=== PATIENT | male | born 1945 | race Caucasian/White ===

== ENCOUNTER → 2017-07-21 09:55 | Outpatient (CLI) | payer MEDICARE ==
[2016-10-18 23:08] VITALS: BMI 24.2
[~2017-07-21 09:55] MED LIST: ACETAMINOPHEN325 MG PO; CLONAZEPAM0.25 MG/TA PO; COUMADIN3 MG PO; HYDROCODON-ACE1 EAC7 PO; LIPITOR20 MG PO; NORVASC5 MG PO; OMEPRAZOLE40 MG PO; OMNICEF300 MG PO; SENNA LAXATIVE8.6 MG PO; STERAPRED 5MG 125 MG PO; ZITHROMAX250 MG PO
== END | disposition home or self-care (01) ==
LOC: D.US 09:55
DX: N18.4 Chronic kidney disease, stage 4 (severe) (principal); R80.0 Isolated proteinuria; R09.89 Other specified symptoms and signs involving the circulatory and respiratory systems

== ENCOUNTER 2017-11-24 14:27 | Inpatient (IN) | payer MEDICARE ==
[~2017-11-24] VITALS: Ht 175.3 cm; Wt 68.5 kg
--- NOTE | ~2017-11-24 | EC ---
PATIENT:SAMANTHA SLOAN DATE OF SERVICE: 11/24/17 SEX: M MEDICAL RECORD: [id number] DATE OF : [birth year] LOCATION:[facility] AGE OF PATIENT: 72 ADMISSION DATE: 11/24/17 REFERRING PHYSICIAN: INTERPRETING PHYSICIAN: JULISA MCCLENDON MD ECHOCARDIOGRAM REPORT ECHO CHARGES 4 ECHO COMPLETE CLINICAL DIAGNOSIS: DYSPNEA ECHOCARDIOGRAPHIC MEASUREMENTS (adult normal given) AC root (d.<3.7cm) 3.1 cm LV Septum d (<1.2 cm> 1.4 cm Valve Excursion 2.2 cm LV Septum (systole) 1.7 cm Left Atria (s.<4.0cm> 3.7 cm LVPW d(<1.2cm) 1.1 cm RV (d.<2.3cm) 3.4 cm LVPW (sytole) 1.8 cm LV diastole(<5.6CM) 5.0 cm MV E-F(>70mm/sec) cm LV systole 3.6 cm LVOT Diameter 2.0 cm MV exc.(>10mm) cm Est.ejection fraction (50-75%) % Pericardial Effusion N DOPPLER: LVIT cm/sec A 73.0 cm/sec E 101 cm/sec LA cm/sec RVSP 31.0 mmHg LVOT 121 cm/sec AOP1/2T m/s Asc. Ao 146 cm/sec RVOT 70.0 cm/sec RA cm/sec PA 92.0 cm/sec AV Gradient Peak 8.5 mmHg AV Mean 4.1 mmHg AV Area 2.0 cm MV Gradient Peak 5.6 mmHg MV Mean 2.3 mmHg MV Area cm COMMENTS: Labor Arbitrator: Keshawn RUBIOE Nitrate Operator: Germán Mcclendon TAPE# PACS DATE OF SERVICE: 11/26/2017 PROCEDURE: Transthoracic echocardiogram. FINDINGS: 1. Left ventricle has evidence of moderate concentric left ventricular hypertrophy with inflow characteristics that are normal. No evidence of diastolic dysfunction. The patient's ejection fraction is mildly reduced at 45% with mild global hypokinesis. The inferior lateral wall was not well visualized. ECHOCARDIOGRAM REPORT [id number] SAMANTHA SLOAN 2. The right ventricle appears mildly dilated with normal function. 3. The left atrium is normal size, normal function. 4. Aortic valve is normal. 5. The mitral valve has trace mitral regurgitation. 6. The tricuspid valve has trace tricuspid regurgitation with normal pressures. 7. Right atrium is mildly dilated. 8. The pulmonic valve is grossly normal. CONCLUSIONS: The patient has mildly decreased LV systolic function; however, it should be noted that there were areas of endocardial surface that we could not well visualized on this study and it is possible that this is contributing to her estimation of left ventricular function. The patient does have evidence of mild hypertrophy of the left ventricle. TRANSINT:[id number] Voice Confirmation ID: [id number] DOCUMENT ID: [id number] JULISA MCCLENDON MD at 1353 CC: [id number] DICTATION DATE: 11/26/17 1015 SWEATBAND DRUMMER: 11/26/17 1124 ADM IN [place] [id number] [place] [address]
[2017-11-24 15:42] LABS: BASOPHILS 0.1 % (0-2); EOSINOPHILS 0.1 % (0-7); HEMATOCRIT 24.4 % (42.0-54.0); HEMOGLOBIN 8.1 g/dL (13.5-17.5); IMMATURE GRANULOCYTES 0.3 % (0-5); LYMPHOCYTES 7.2 % (15-50); MCH 31.2 pg (26.0-34.0); MCHC 33.2 g/dL (31.0-37.0); MCV 93.8 fL (80.0-100.0); MEAN PLATELET VOLUME 9.3 fL (7.4-10.4); MONOCYTES 6.4 % (2-11); NEUTROPHILS 85.9 % (40-80); PLATELET COUNT 604 10x3/uL (130-400); RDW 14.6 % (11.5-14.5)
[2017-11-24 16:23] LABS: ALBUMIN 2.5 g/dL (3.4-5.0); ANION GAP 17.9 mmol/L (8-16); BILIRUBIN - TOTAL 0.59 mg/dL (0.2-1.3); CALCIUM 9.2 mg/dL (8.5-10.1); CARBON DIOXIDE 23.4 mmol/L (21.0-32.0); CREATININE - SERUM 4.3 mg/dL (0.6-1.3); POTASSIUM - SERUM 5.3 mmol/L (3.5-5.1); PROTEIN - SERUM 7.1 g/dL (6.4-8.2)
[2017-11-24 16:27] LABS: APPEARANCE CLEAR (CLEAR); BILIRUBIN NEGATIVE (NEGATIVE); COLOR YELLOW (YELLOW); GLUCOSE NEGATIVE (NEGATIVE); KETONE NEGATIVE (NEGATIVE); NITRITE NEGATIVE (NEGATIVE); PROTEIN 1+ mg/dL (NEGATIVE); SPECIFIC GRAVITY 1.015 (1.005-1.020); UROBILINOGEN NORMAL (NORMAL)
[2017-11-24 17:17] LABS: MAGNESIUM - SERUM 2.3 mg/dL (1.8-2.4)
[2017-11-25] VITALS (21 sets, daily range): BP systolic 105–129; BP diastolic 51–70; BMI 22.3
[2017-11-25] MEDS ORDERED: OXYCODONE HCL5 MG PO (00:12)
[2017-11-25] MEDS ORDERED: GABAPENTIN100 MG PO (00:13)
[2017-11-25] MEDS ORDERED: NORVASC10 MG PO (00:13)
[2017-11-25] MEDS ORDERED: PLAVIX75 MG PO (00:14)
[2017-11-25] MEDS ORDERED: PRINIVIL20 MG PO (00:14)
[2017-11-25] MEDS ORDERED: BAYER CHEWABLE81 MG PO (00:15)
[2017-11-25] MEDS ORDERED: FUROSEMIDE20 MG PO (00:15)
[2017-11-25 12:50] LABS: BASOPHILS 0.1 % (0-2); EOSINOPHILS 0.1 % (0-7); IMMATURE GRANULOCYTES 0.3 % (0-5); LYMPHOCYTES 9.4 % (15-50); MCHC 31.8 g/dL (31.0-37.0); MCV 94.2 fL (80.0-100.0); MEAN PLATELET VOLUME 9.1 fL (7.4-10.4); MONOCYTES 7.9 % (2-11); NEUTROPHILS 82.2 % (40-80); RBC 2.07 10x6/uL (4.20-6.10); RDW 14.8 % (11.5-14.5)
[2017-11-25 12:58] LABS: WBC 10.7 10x3/uL (4.8-10.8)
[2017-11-25 13:00] LABS: HEMATOCRIT 19.5 % (42.0-54.0); HEMOGLOBIN 6.2 g/dL (13.5-17.5); PLATELET COUNT 426 10x3/uL (130-400)
[2017-11-25 13:18] LABS: % SATURATION 5 % (15-55); IRON 9 ug/dl (35-150); TOTAL IRON BIND CAPACITY 175 ug/dl (260-445); UNSAT IRON BIND CAPACITY 166 ug/dl (150-375)
[2017-11-25 13:28] LABS: ANION GAP 15.6 mmol/L (8-16); CALCIUM 8.1 mg/dL (8.5-10.1); CARBON DIOXIDE 25.6 mmol/L (21.0-32.0); CREATININE - SERUM 4.8 mg/dL (0.6-1.3); POTASSIUM - SERUM 4.2 mmol/L (3.5-5.1)
[2017-11-26] VITALS (15 sets, daily range): BP systolic 113–180; BP diastolic 36–69
[2017-11-26 06:47] LABS: BASOPHILS 0.1 % (0-2); EOSINOPHILS 0.8 % (0-7); IMMATURE GRANULOCYTES 0.7 % (0-5); LYMPHOCYTES 11.6 % (15-50); MCH 31.3 pg (26.0-34.0); MCHC 34.6 g/dL (31.0-37.0); MEAN PLATELET VOLUME 9.9 fL (7.4-10.4); MONOCYTES 10.1 % (2-11); NEUTROPHILS 76.7 % (40-80); PLATELET COUNT 443 10x3/uL (130-400); RDW 15.3 % (11.5-14.5); WBC 10.3 10x3/uL (4.8-10.8)
[2017-11-26 06:55] LABS: HEMATOCRIT 28.6 % (42.0-54.0); HEMOGLOBIN 9.9 g/dL (13.5-17.5); MCV 90.5 fL (80.0-100.0); RBC 3.16 10x6/uL (4.20-6.10)
[2017-11-26 07:20] LABS: % SATURATION 48 % (15-55); IRON 96 ug/dl (35-150); TOTAL IRON BIND CAPACITY 200 ug/dl (260-445); UNSAT IRON BIND CAPACITY 104 ug/dl (150-375)
[2017-11-26 07:30] LABS: CALCIUM 8.5 mg/dL (8.5-10.1); CREATININE - SERUM 4.4 mg/dL (0.6-1.3)
[2017-11-27 00:59] LABS: HEMATOCRIT 30.9 % (42.0-54.0); HEMOGLOBIN 10.5 g/dL (13.5-17.5)
[2017-11-27 01:22] VITALS: BP 119/60
[2017-11-27 05:19] VITALS: BP 132/71
[2017-11-27 08:07] LABS: BASOPHILS 0.2 % (0-2); EOSINOPHILS 0.4 % (0-7); HEMATOCRIT 30.9 % (42.0-54.0); HEMOGLOBIN 10.5 g/dL (13.5-17.5); LYMPHOCYTES 7.6 % (15-50); MCV 91.2 fL (80.0-100.0); MEAN PLATELET VOLUME 9.6 fL (7.4-10.4); MONOCYTES 10.2 % (2-11); NEUTROPHILS 80.6 % (40-80); PLATELET COUNT 508 10x3/uL (130-400); RBC 3.39 10x6/uL (4.20-6.10); RDW 15.3 % (11.5-14.5); WBC 13.2 10x3/uL (4.8-10.8)
[2017-11-27 08:30] LABS: CALCIUM 8.3 mg/dL (8.5-10.1); CARBON DIOXIDE 25.2 mmol/L (21.0-32.0); CREATININE - SERUM 4.1 mg/dL (0.6-1.3); POTASSIUM - SERUM 5.2 mmol/L (3.5-5.1)
[2017-11-27 08:34] VITALS: BP 141/65
[2017-11-27 12:07] LABS: HEMATOCRIT 31.7 % (42.0-54.0); HEMOGLOBIN 10.7 g/dL (13.5-17.5)
[2017-11-27 12:33] VITALS: BP 107/60
[2017-11-27 16:51] VITALS: BP 114/60
[2017-11-27 19:21] LABS: HEMATOCRIT 31.5 % (42.0-54.0); HEMOGLOBIN 10.7 g/dL (13.5-17.5)
[2017-11-27 22:17] VITALS: BP 133/84
[2017-11-28 00:51] LABS: HEMATOCRIT 28.9 % (42.0-54.0); HEMOGLOBIN 9.8 g/dL (13.5-17.5)
[2017-11-28 02:28] VITALS: BP 134/68
[2017-11-28 04:41] VITALS: BP 128/66
[2017-11-28 06:13] LABS: BASOPHILS 0.2 % (0-2); EOSINOPHILS 0.7 % (0-7); HEMATOCRIT 29.7 % (42.0-54.0); HEMOGLOBIN 10.2 g/dL (13.5-17.5); IMMATURE GRANULOCYTES 0.8 % (0-5); LYMPHOCYTES 10.9 % (15-50); MCH 31.2 pg (26.0-34.0); MCHC 34.3 g/dL (31.0-37.0); MCV 90.8 fL (80.0-100.0); MEAN PLATELET VOLUME 9.3 fL (7.4-10.4); MONOCYTES 11.6 % (2-11); NEUTROPHILS 75.8 % (40-80); PLATELET COUNT 506 10x3/uL (130-400); RBC 3.27 10x6/uL (4.20-6.10); RDW 15.1 % (11.5-14.5); WBC 12.1 10x3/uL (4.8-10.8)
[2017-11-28 07:00] LABS: ALBUMIN 1.8 g/dL (3.4-5.0); CALCIUM 8.6 mg/dL (8.5-10.1); CARBON DIOXIDE 24.7 mmol/L (21.0-32.0); CREATININE - SERUM 3.9 mg/dL (0.6-1.3); PHOSPHOROUS 4.5 mg/dL (2.5-4.9); POTASSIUM - SERUM 4.7 mmol/L (3.5-5.1)
[2017-11-28 08:26] VITALS: BP 134/68
[2017-11-28 12:27] VITALS: BP 151/87
[2017-11-28 16:51] VITALS: BP 88/58
[2017-11-28 20:51] VITALS: BP 137/74
[2017-11-29 05:44] LABS: BASOPHILS 0.3 % (0-2); EOSINOPHILS 0.9 % (0-7); HEMATOCRIT 29.4 % (42.0-54.0); LYMPHOCYTES 11.7 % (15-50); MEAN PLATELET VOLUME 9.2 fL (7.4-10.4); MONOCYTES 11.3 % (2-11); NEUTROPHILS 74.8 % (40-80); PLATELET COUNT 476 10x3/uL (130-400); RBC 3.23 10x6/uL (4.20-6.10); RDW 15.1 % (11.5-14.5); WBC 11.6 10x3/uL (4.8-10.8)
[2017-11-29 05:53] VITALS: BP 133/69
[2017-11-29 05:56] LABS: ANION GAP 15.2 mmol/L (8-16); CALCIUM 8.4 mg/dL (8.5-10.1); CARBON DIOXIDE 22.3 mmol/L (21.0-32.0); CREATININE - SERUM 3.4 mg/dL (0.6-1.3)
[2017-11-29 06:21] LABS: POTASSIUM - SERUM 5.5 mmol/L (3.5-5.1)
[2017-11-29 07:21] LABS: IMMUNOGLOBULIN E 29 IU/mL (0-100)
[2017-11-29 07:21] LABS: FOLATE (FOLIC ACID) - SERUM 6.4 ng/mL (>3.0)
[2017-11-29 08:44] VITALS: BP 105/72
[2017-11-29 11:53] VITALS: BP 141/63
[2017-11-29 16:17] VITALS: BP 162/69
[2017-11-29 20:00] VITALS: BP 150/61
[2017-11-30] VITALS: BP 155/66
[2017-11-30 08:33] VITALS: BP 153/74
[2017-11-30 08:58] LABS: CALCIUM 8.7 mg/dL (8.5-10.1); CARBON DIOXIDE 23.4 mmol/L (21.0-32.0); CREATININE - SERUM 2.9 mg/dL (0.6-1.3); PHOSPHOROUS 3.2 mg/dL (2.5-4.9); POTASSIUM - SERUM 5.4 mmol/L (3.5-5.1)
[2017-11-30 09:45] LABS: BASOPHILS 0.3 % (0-2); EOSINOPHILS 1.4 % (0-7); HEMATOCRIT 30.2 % (42.0-54.0); HEMOGLOBIN 10.1 g/dL (13.5-17.5); IMMATURE GRANULOCYTES 1.2 % (0-5); LYMPHOCYTES 9.5 % (15-50); MCH 30.8 pg (26.0-34.0); MCHC 33.4 g/dL (31.0-37.0); MCV 92.1 fL (80.0-100.0); MEAN PLATELET VOLUME 9.5 fL (7.4-10.4); MONOCYTES 11.3 % (2-11); NEUTROPHILS 76.3 % (40-80); PLATELET COUNT 466 10x3/uL (130-400); RBC 3.28 10x6/uL (4.20-6.10); WBC 10.9 10x3/uL (4.8-10.8)
[2017-11-30 12:57] VITALS: BP 154/74
[2017-11-30 15:03] VITALS: Ht 175.3 cm; Wt 68.5 kg
[2017-11-30 17:04] VITALS: BP 161/71
[2017-11-30 20:00] VITALS: BP 156/39
[2017-12-01 04:00] VITALS: BP 151/44
[2017-12-01 04:14] LABS: BASOPHILS 0.2 % (0-2); EOSINOPHILS 1.8 % (0-7); LYMPHOCYTES 12.6 % (15-50); MCHC 33.3 g/dL (31.0-37.0); MCV 92.9 fL (80.0-100.0); MEAN PLATELET VOLUME 9.2 fL (7.4-10.4); MONOCYTES 10.6 % (2-11); NEUTROPHILS 73.8 % (40-80); PLATELET COUNT 442 10x3/uL (130-400); RBC 3.23 10x6/uL (4.20-6.10); RDW 15.2 % (11.5-14.5)
[2017-12-01 05:01] LABS: ANION GAP 13.3 mmol/L (8-16); CARBON DIOXIDE 25.3 mmol/L (21.0-32.0); CREATININE - SERUM 2.8 mg/dL (0.6-1.3); POTASSIUM - SERUM 5.6 mmol/L (3.5-5.1)
[2017-12-01 08:16] VITALS: BP 146/74
[2017-12-01 12:57] VITALS: BP 142/57
[2017-12-01 16:14] VITALS: BP 145/70
[2017-12-01 20:00] VITALS: BP 152/76
[2017-12-01] MEDS ORDERED: ADOXA100 MG PO (20:36)
[2017-12-01] MEDS ORDERED: OMNICEF300 MG PO (20:37)
[2017-12-02] VITALS: BP 157/84
== END 2017-12-02 01:00 | disposition home health service (06) | DRG 177 ==
LOC: D.ER 14:27 → D.MS 18:19
PROVIDERS: Emergency Medicine; Family Medicine; Internal Medicine Nephrology; Internal Medicine Pulmonary Disease; Physician Assistant Medical
DX: J15.6 Pneumonia due to other Gram-negative bacteria (principal); A41.9 Sepsis, unspecified organism; J96.01 Acute respiratory failure with hypoxia; J98.11 Atelectasis; J90 Pleural effusion, not elsewhere classified; I13.0 Hypertensive heart and chronic kidney disease with heart failure and stage 1 through stage 4 chronic kidney disease, or unspecified chronic kidney disease; I50.30 Unspecified diastolic (congestive) heart failure; N17.9 Acute kidney failure, unspecified; J44.1 Chronic obstructive pulmonary disease with (acute) exacerbation; J44.0 Chronic obstructive pulmonary disease with (acute) lower respiratory infection; I69.354 Hemiplegia and hemiparesis following cerebral infarction affecting left non-dominant side; M35.1 Other overlap syndromes; E22.2 Syndrome of inappropriate secretion of antidiuretic hormone; N18.3 Chronic kidney disease, stage 3 (moderate); R39.11 Hesitancy of micturition; I73.9 Peripheral vascular disease, unspecified; I48.91 Unspecified atrial fibrillation; D64.9 Anemia, unspecified; I69.311 Memory deficit following cerebral infarction; R33.9 Retention of urine, unspecified; N40.0 Benign prostatic hyperplasia without lower urinary tract symptoms; J15.212 Pneumonia due to Methicillin resistant Staphylococcus aureus; R63.1 Polydipsia

== ENCOUNTER 2019-12-06 15:56 | Inpatient (IN) | payer MEDICARE ==
[~2019-12-06] VITALS: Ht 175.3 cm; Wt 75.6 kg
--- NOTE | ~2019-12-06 | CN ---
PATIENT NAME:SAMANTHA PENA MEDICAL RECORD: [id number] : 47 LOCATION:[facility].2314 ADMIT DATE: 12/06/19 ACCOUNT: [id number] CONSULTING PHYSICIAN: LAYLA STAFFORD MD REFERRING PHYSICIAN: STAN MARTINI MD DATE OF CONSULTATION: 12/07/2019 CONSULT REQUESTING PHYSICIAN: Stan Martini MD REASON FOR CONSULTATION: Bilateral pleural effusion, questionable pneumonia. HISTORY OF PRESENT ILLNESS: Mr. Pena is a 74-year-old gentleman who has more than 28-kvmd-fzob history of smoking, quit in 2010. He was admitted with some fever and worsening shortness of breath and chest x-ray showed bilateral lower lobe infiltrates and the patient was admitted to the hospital. The repeat chest radiograph yesterday showed bilateral pleural effusion. He is complaining of shortness of breath. He has cough with pale yellow color sputum production. There is no fever and chill now. There is no chest pain. He is also having orthopnea and PND. REVIEW OF SYSTEMS: As in history of present illness. PAST MEDICAL HISTORY: 1. He has a history of cerebrovascular accident. 2. History of aneurysm. 3. Hypertension. 4. Peripheral vascular disease. 5. Chronic backache. 6. Arthritis. PAST SURGICAL HISTORY: 1. Forearm extremity. 2. He has amputation in 2007. ALLERGIES: HE IS ALLERGIC TO MELOXICAM. MEDICATIONS: [employer] is reviewed. PERSONAL AND SOCIAL HISTORY: The patient has more than 44-gizj-cwxz history of smoking. He quitted 2010. He is a nondrinker. FAMILY HISTORY: Noncontributory. PHYSICAL EXAMINATION: GENERAL: Now, the patient is lying comfortably. He is not in acute distress. VITAL SIGNS: The blood pressure is 138/64, pulse is 84, respiration is 20, temperature 98.8, and SPO2 is 90% on 2 liters nasal cannula. HEENT: Conjunctivae are pink. Sclerae are not icteric. NECK: Supple, no JVD. CHEST: There is prolonged expiratory wheezing. There are bibasilar crackles with dullness on percussion. HEART: Rate and rhythm regular, normal sound, no murmur. ABDOMEN: Soft, bowel sounds present. No hepatosplenomegaly. RECTAL: Deferred. EXTREMITIES: No cyanosis, no clubbing, no pedal edema. CONSULT REPORT [id number] SAMANTHA PENA CENTRAL NERVOUS SYSTEM: The patient is awake and alert. There is no obvious cranial nerve abnormality. The gait was not tested. EXTREMITIES: There is 2+ pedal edema. LABORATORY DATA: ABG: The pH is 7.34, pCO2 was 46.7, the pO2 is 59, bicarbonate 25.6. Chemistry: Sodium is 136, potassium 4.2, BUN is 42, creatinine 4.9. CBC: WBC is 4, hemoglobin is 9, hematocrit is 28.6, and platelet count 157. The proBNP is 23,892. CHEST RADIOGRAPH: There is bilateral moderate-sized pleural effusion and underlying atelectasis, possible infiltrate. IMPRESSION: 1. Acute hypoxic respiratory failure. 2. Bilateral pleural effusion, most likely secondary to congestive heart failure, rule out parapneumonic pleural effusion. 3. Pneumonia, bilateral, possible community-acquired pneumonia. 4. Congestive heart failure, possible chronic systolic dysfunction with a proBNP 22,000. 5. Acute renal failure with acute kidney injury. 6. Ex-smoker. 7. Acute exacerbation of chronic obstructive pulmonary disease. RECOMMENDATION: 1. Continue Lasix. 2. Hep-Lock IV. 3. Supplemental oxygen. 4. Brovana, budesonide nebulizer. 5. Albuterol/ipratropium nebulizer. 6. Check the decubitus chest film. 7. Follow up on the cardiac echo. If there is a significant layering of pleural effusion, we will proceed with thoracentesis. Dr. Martini thank you for involving me in the care of Mr. Pena. TRANSINT:[id number] Voice Confirmation ID: [id number] DOCUMENT ID: [id number] LAYLA STAFFORD MD CC: [id number] DICTATION DATE: 12/07/19 142 HYDROGRAPHER: 12/07/[address] [facility] [address] [place] [address]
[~2019-12-06 15:56] MED LIST changes: +ADOXA100 MG PO; +BAYER CHEWABLE81 MG PO; +FUROSEMIDE20 MG PO; +GABAPENTIN100 MG PO; +NORVASC10 MG PO; +OXYCODONE HCL5 MG PO; +PLAVIX75 MG PO; +PRINIVIL20 MG PO
[2019-12-06 16:21] LABS: BASOPHILS 0.7 % (0-2); EOSINOPHILS 5.3 % (0-7); HEMATOCRIT 31.6 % (42.0-54.0); IMMATURE GRANULOCYTES 0.2 % (0-5); LYMPHOCYTES 22.9 % (15-50); MCH 30.1 pg (26.0-34.0); MCHC 31.6 g/dL (31.0-37.0); MCV 95.2 fL (80.0-100.0); MONOCYTES 10.3 % (2-11); NEUTROPHILS 60.6 % (40-80); RBC 3.32 10x6/uL (4.20-6.10); RDW 14.6 % (11.5-14.5); WBC 4.4 10x3/uL (4.8-10.8)
[2019-12-06 16:25] LABS: PLATELET COUNT 158 10x3/uL (130-400)
[2019-12-06 16:31] LABS: INR 0.95 (0.85-1.17); PROTIME 12.6 SECONDS (11.6-15.0)
[2019-12-06 16:32] LABS: CALC OSMOLALITY 285 mosm/kg (275-300); CALCIUM 8.2 mg/dL (8.5-10.1); CARBON DIOXIDE 28.1 mmol/L (21.0-32.0); CHLORIDE - SERUM 101 mmol/L (98-107); GLUCOSE 107 mg/dL (74-106); POTASSIUM - SERUM 4.3 mmol/L (3.5-5.1); SODIUM 138 mmol/L (136-145); UREA NITROGEN 41 mg/dL (7-18); eGFR NON AFRICAN AMERICAN 12 mL/min (90-120)
[2019-12-06 16:50] LABS: ALBUMIN 3.3 g/dL (3.4-5.0); ALKALINE PHOSPHATASE 76 U/L (46-116); ALT (SGPT) 17 U/L (10-68); BILIRUBIN - TOTAL 0.65 mg/dL (0.2-1.3); CREATINE KINASE 192 UL (21-232); PRO BNP 23892 pg/mL (0-125); PROTEIN - SERUM 6.4 g/dL (6.4-8.2); TROPONIN-I < 0.017 ng/mL (0.000-0.060)
[2019-12-06 17:25] LABS: APPEARANCE CLEAR (CLEAR); BILIRUBIN NEGATIVE (NEGATIVE); COLOR YELLOW (YELLOW); GLUCOSE NEGATIVE (NEGATIVE); KETONE NEGATIVE (NEGATIVE); NITRITE NEGATIVE (NEGATIVE); PROTEIN 1+ mg/dL (NEGATIVE); SPECIFIC GRAVITY 1.015 (1.005-1.020); UROBILINOGEN NORMAL (NORMAL)
[2019-12-06 18:28] VITALS: BP 132/61
[2019-12-06 18:40] LABS: % SATURATION 9 % (15-55); IRON 32 ug/dl (35-150); TOTAL IRON BIND CAPACITY 326 ug/dl (260-445); UNSAT IRON BIND CAPACITY 294 ug/dl (150-375)
[2019-12-06 19:08] LABS: MAGNESIUM - SERUM 2.3 mg/dL (1.8-2.4)
[2019-12-06] MEDS ORDERED: CARDURA4 MG PO (19:49)
[2019-12-06] MEDS ORDERED: HYDROCODON-ACE1 EA10 PO (19:50)
[2019-12-06 22:13] VITALS: BP 127/60; BMI 19.2
--- NOTE | 2019-12-06 23:22 | NUR ---
INITIAL ROUNDS COMPLETED AT 1909 HRS. PT DENIED ANY DISCOMFORT. IV TO LAC WITH ZITHROMAX INFUSING. O2 4LNC. AT BEDSIDE. HOME MEDS COMPLETED BY 2029 HRS. Александр BUCHANAN APN NOTIFIED OF PT'S ADMISSION AND HOME MED LIST COMPLETED. ADMISSION ASSESSMENT AND HISTORY COMPLETED BY 2229 HRS. VSS. O2 4LNC. O2 SAT 90%. TELEMETRY UNAVAILABLE AT THIS TIME. IV TO LAC WITH LR AT 75CC/HR. IV PATENT. OLD L AKA NOTED. LUNGS DIMINISHED IN BASES BILAT. ABD SOFT WTIH ACTIVE BS NOTED. ALERT AND ORIENTED TO PERSON, PLACE AND TIME. PT CURRENTLY WATCHING TV. SR UP X2, CALL LIGHT WITHIN REACH REACH AND AT BEDSIDE.
[2019-12-06 23:26] LABS: CKMB 3.5 U/L (0.0-3.6); CREATINE KINASE 180 UL (21-232)
[2019-12-06 23:27] LABS: TROPONIN-I 0.017 ng/mL (0.000-0.060)
[2019-12-07] VITALS: BP 125/74
--- NOTE | 2019-12-07 02:31 | NUR ---
TELE PLACED. SR PER CM HR 74. PT RESTING WITH EYES CLOSED. RESP EVEN AND REGULAR. SR UP X2, CALL LIGHT WITHIN REACH AND SPOUSE AT BEDSIDE.
[2019-12-07 04:00] VITALS: BP 145/63
--- NOTE | 2019-12-07 05:49 | NUR ---
VSS THROUGHOUT NIGHT. SR PER CM. PT DENIED ANY DISCOMFORT. NEEDS MET;WILL CONTINUE TO MONITOR.
[2019-12-07 06:02] LABS: BASOPHILS 0.5 % (0-2); EOSINOPHILS 3.7 % (0-7); HEMATOCRIT 28.6 % (42.0-54.0); IMMATURE GRANULOCYTES 0.2 % (0-5); MCHC 31.5 g/dL (31.0-37.0); MCV 95.3 fL (80.0-100.0); MEAN PLATELET VOLUME 11.5 fL (7.4-10.4); MONOCYTES 7.2 % (2-11); NEUTROPHILS 64.4 % (40-80); PLATELET COUNT 157 10x3/uL (130-400); RDW 14.7 % (11.5-14.5)
[2019-12-07 06:12] LABS: ALBUMIN 2.9 g/dL (3.4-5.0); BILIRUBIN - TOTAL 0.55 mg/dL (0.2-1.3); CALCIUM 7.9 mg/dL (8.5-10.1); CARBON DIOXIDE 25.2 mmol/L (21.0-32.0); CREATININE - SERUM 4.9 mg/dL (0.6-1.3); POTASSIUM - SERUM 4.2 mmol/L (3.5-5.1)
--- NOTE | 2019-12-07 07:00 | NUR ---
RECEIVED REPORT. ASSUMED CARE OF PATIENT. CALL LIGHT WITHIN REACH. RESTING WITH EYES CLOSED. RESP EVEN AND UNLABORED. PATIETN AT BEDSIDE WITH EYES CLOSED. NO DISTRESS.
[2019-12-07 10:12] VITALS: BP 138/64
[2019-12-07 12:00] VITALS: BP 140/61
--- NOTE | 2019-12-07 12:27 | NUR ---
IV FLUIDS REDUCED TO KVO AT THIS TIME.
--- NOTE | 2019-12-07 14:18 | NUR ---
PER , IV FLUIDS OFF AND IV IS SALINE LOCKED AT THIS TIME.
[2019-12-07 16:44] LABS: CREATININE - URINE 87.7 mg/dL (30-125); PRO/CRE RATIO URINE 1.5 mg/g; PROTEIN - URINE 134.3 mg/dL (0.0-11.9)
[2019-12-07 20:00] VITALS: BP 128/61
--- NOTE | 2019-12-07 20:08 | NUR ---
INITIAL ORUNDS COMPLETED AT 1915 HRS. NO DISTRESS NOTED. ASSESSMENT COMPLETED AT 1950 HRS. SR PER CM HR 86. O2 4LNC. AUDIBLE EXP WHEEZES NOTED TO UPPER LOBES, DIMINISHED IN LOWER LOBES. ABD SOFT WTIH ACTIVE BS NOTED. SHAMIKA SIMPSON. SR UP X2, CALL LIGHT WITHIN REACH.
--- NOTE | 2019-12-07 21:34 | NUR ---
HUMIDIFER PLACED ON O2. PM MEDS GIVEN. HIBICLENS BATH DONE. PT TOLERATED ACTIVITY WELL. SR UP X2, CALL LIGHT WITHIN REACH.
--- NOTE | 2019-12-07 22:53 | NUR ---
ASSISTED PT TO BSC. VOIDED 200CC OF YELLOW URINE AND HAD A MODERTE BM. PT BACK TO BED PER SELF. PT VERY SOB WITH EXERTION. AUDIBLE WHEEZES NOTED. O2 SAT 83% ON 6LNC. PT PLACED IN HIGH FOWLERS AND ENCOURAGED TO TAKE SLOW DEEP BREATHS IN THROUGH HIS NOSE AND OUT THROUGH HIS MOUTH. O2 SAT TO 90% AFTER APPROX 5 MINUTES AND NO AUDIBLE WHEEZING. OTHER VSS. SR UP X2, CALL LIGHT WITHIN REACH.
[2019-12-08] VITALS (11 sets, daily range): BP systolic 108–165; BP diastolic 49–76
--- NOTE | 2019-12-08 00:46 | NUR ---
PT RESTING WITH EYES CLOSED. RESP EVEN AND REGULAR. SR UPX2, CALL LIGHT WITHIN REACH AND HOB UP 45 DEGREES.
--- NOTE | 2019-12-08 03:24 | NUR ---
ASSISTED PT TO BSC. PT SOB WITH ACTIVITY.
--- NOTE | 2019-12-08 03:55 | NUR ---
O2 SAT 65% ON 6L NC AFTER PT PUT SELF BACK IN BED. PT PLACED IN HIGH FOWLERS AND ENCOURGED TO TAKE SLOW DEEP BREATHS. UP TO 90% AFTER 10 MINUTES. RT CALLED FOR PRN RT TX AND FOR ?HIGH FLOW CANNULA. FAN PLACED IN ROOM PER PT REQUEST.
[2019-12-08 05:45] LABS: BASOPHILS 0.2 % (0-2); EOSINOPHILS 2.1 % (0-7); HEMATOCRIT 28.7 % (42.0-54.0); HEMOGLOBIN 8.9 g/dL (13.5-17.5); IMMATURE GRANULOCYTES 0.2 % (0-5); MCV 96.6 fL (80.0-100.0); MEAN PLATELET VOLUME 11.1 fL (7.4-10.4); MONOCYTES 10.3 % (2-11); NEUTROPHILS 73.2 % (40-80); PLATELET COUNT 138 10x3/uL (130-400); RBC 2.97 10x6/uL (4.20-6.10); RDW 14.7 % (11.5-14.5); WBC 4.3 10x3/uL (4.8-10.8)
--- NOTE | 2019-12-08 05:47 | NUR ---
PT STATES HE IS BREATHNG BETTER AT THIS TME. AUDIBLE EXP WHEEZES NOTED. O2 6L HF O2 WITH HUMIDIFIER. NEEDS MET; WILL CONTINUE TO MONITOR.
[2019-12-08 06:08] LABS: ANION GAP 11.7 mmol/L (8-16); CALCIUM 7.7 mg/dL (8.5-10.1); CARBON DIOXIDE 28.6 mmol/L (21.0-32.0); PHOSPHOROUS 5.4 mg/dL (2.5-4.9); POTASSIUM - SERUM 4.3 mmol/L (3.5-5.1)
--- NOTE | 2019-12-08 10:14 | NUR ---
ALERT AND ORIENTED.TELEMERTY SHOWS SR. SL TO LEFT AC. O2 AT 8 L/M HIGH FLOW. LUNGS WITH WHEEZES. LEFT AKA. LEFT HAND WITH PART OF HIS POINTER FINGER REMOVED. NO NEEDS VOICED. SR UP WITH CALL LIGHT IN REACH
[2019-12-08 17:06] LABS: ANION GAP 9.8 mmol/L (8-16); CALCIUM 7.6 mg/dL (8.5-10.1); CARBON DIOXIDE 28.3 mmol/L (21.0-32.0); CREATININE - SERUM 4.7 mg/dL (0.6-1.3); POTASSIUM - SERUM 4.1 mmol/L (3.5-5.1)
--- NOTE | 2019-12-08 17:30 | NUR ---
20 GAUGE IV PLACED TO LEFT UPPER ARM X 1 STICK. GOOD BLOOD RETURN, EASY FLUSH. TAPED, DATED, AND SECURED. PATIENT TOLERATED IV PLACEMENT WELL. PATIENT IN RAPID RESPONSE AT THIS TIME. DR. STAFFORD AT BEDSIDE. 60MG LASIX ADMINISTERED PER VERBAL INSTRUCTION OF . PATIENT TRANSFERRING TO ICU 1979.
--- NOTE | 2019-12-08 17:45 | NUR ---
RECEIVED PATIENT FROM [facility] 2 PER BED. PATIENT TRANSFERED SELF TO BED. SKIN WARM AND DRY. PATIENT AWAKE AND ALERT. ON HIGH GLOW OXYGEN AT 7 LITERS. PULSE OX 78%. RESP THERAPY HERE SETTING UP BIPAP. PATIENT PLACED ON BIPAP AT 50%. IV LEFT UPPER ARM SALINE LOCK.
--- NOTE | 2019-12-08 17:50 | NUR ---
IN ROOM, DISCUSS TRILYSIS CATHETER INSERTION WITH THEM. CONSENT SIGNED. QUESTIONS ANSWERED. PULSE OX IN 90'S. NO DISTRESS.
--- NOTE | 2019-12-08 17:59 | NUR ---
TRANSFERED TO ICU FOLLOWING RAPID RESPONCE. REPORT CALLED TO DENVER MARTÍNEZ.
[2019-12-08 18:26] LABS: CKMB 7.1 U/L (0.0-3.6); CREATINE KINASE 343 UL (21-232)
[2019-12-08 18:27] LABS: TROPONIN-I 0.057 ng/mL (0.000-0.060)
--- NOTE | 2019-12-08 20:19 | NUR ---
REPORT RECIEVED AND ROUNDING COMPLETE. DR. NGUYEN IN ROOM WITH PATIENT. PATIENT A&O X4. PATIENT STATES HE HAS NO NEES AT THIS TIME. CALL LIGHT WITHIN REACH AND BED IN LOWEST LOCKED POSITION.
--- NOTE | 2019-12-08 21:34 | NUR ---
PATIENT RECIEVING DIALYSIS, HANDLING WELL.
--- NOTE | 2019-12-08 22:10 | NUR ---
TLAKED WITH DR. WRIGHT, HE SAID TO CONTINUE WITH THE BUMEX DRIP, HE ALSO STATED TO GO AHEAD AND DC THE LR. WILL CONTINUE WITH HIS ORDERS.
--- NOTE | 2019-12-08 23:34 | NUR ---
PATIENT ASKED TO BE TAKEN OFF THE BIPAP AND TO HAVE SOMETHING TO EAT. PATIENT PUT ON HIGH FLOW NASAL CANNULA AT 8L, SANDWICH GIVEN. NO OTHER NEEDS AT THIS TIME. CALL LIGHT WITHIN REACH. BED IN LOWEST LOCKED POSITION.
[2019-12-09] VITALS (24 sets, daily range): BP systolic 121–154; BP diastolic 54–96; BMI 19.2
--- NOTE | 2019-12-09 00:15 | NUR ---
PATIENT PLACED BACK ON BIPAP. PATIENT STAYED STATING JUST ABOVE 90% WHEN ON O2, PATIENT FINISHED EATING. ONLY ATE 50% OF SANDWICH
--- NOTE | 2019-12-09 01:05 | NUR ---
PATIENT RESTING COMFORTABLY IN BED IN LOW FOWLERS. PATIENT WEARING BIPAP AT THIS TIME. PATIENT SHOWS NO S/SX OF DISTRESS.
--- NOTE | 2019-12-09 03:07 | NUR ---
PATIENT STILL FIGHTING TO KEEP BIPAP ON WITH THE PROPER FIT. HE WILL REMOVE TO PICK NOSE AND NOT PUT ON HIS NASAL CANNULA OR REPLACE BIPAP. BIPAP ON NOW AND WORKING FINE.
[2019-12-09 04:26] LABS: BASOPHILS 0.5 % (0-2); EOSINOPHILS 3.1 % (0-7); HEMATOCRIT 27.3 % (42.0-54.0); HEMOGLOBIN 8.6 g/dL (13.5-17.5); IMMATURE GRANULOCYTES 0.3 % (0-5); LYMPHOCYTES 20.5 % (15-50); MCH 30.2 pg (26.0-34.0); MCHC 31.5 g/dL (31.0-37.0); MCV 95.8 fL (80.0-100.0); MEAN PLATELET VOLUME 11.6 fL (7.4-10.4); NEUTROPHILS 66.6 % (40-80); PLATELET COUNT 112 10x3/uL (130-400); RBC 2.85 10x6/uL (4.20-6.10); RDW 14.7 % (11.5-14.5); WBC 3.9 10x3/uL (4.8-10.8)
--- NOTE | 2019-12-09 04:52 | NUR ---
PATIENT LAYING IN BED IN LOW FOWLERS POSITION. NO NEEDS AT THIS TIME.
[2019-12-09 04:53] LABS: ANION GAP 10.9 mmol/L (8-16); CALCIUM 7.6 mg/dL (8.5-10.1); CARBON DIOXIDE 28.2 mmol/L (21.0-32.0); CREATININE - SERUM 4.7 mg/dL (0.6-1.3); POTASSIUM - SERUM 4.1 mmol/L (3.5-5.1)
--- NOTE | 2019-12-09 05:58 | NUR ---
I have reviewed this patient and I concur with the Shift Assessment completed by the Licensed Practical Nurse today this shift.
--- NOTE | 2019-12-09 08:00 | NUR ---
BREAKFAST TRAY TO BEDSIDE, AT BEDSIDE, ASSISTED WITH SET UP, BIPAP OFF AND HF NC AT 7 L PLACED
--- NOTE | 2019-12-09 08:51 | NUR ---
MORNING MEDS GIVEN WITH SIPS OF WATER, TOLERATED WITHOUT DIFFICULTY
--- NOTE | 2019-12-09 10:21 | NUR ---
DR MOUNIKA CABAN, NEW ORDERS GIVEN, IS AND FLUTTER TO BEDSIDE, EDUCATION AND INSTRUCTIONS GIVEN, RETURNED DEMONSTRATON
--- NOTE | 2019-12-09 11:11 | NUR ---
DR WRIGHT HERE FOR EVAL, NEW ORDERS WILL BE GIVEN
--- NOTE | 2019-12-09 11:32 | NUR ---
CALLED TO ROOM, ASKING FOR URINAL, ITS AT BEDSIDE, PLACED IN HAND, PT REPOSITIONS HIMSELF TO BEDSIDE TO URINATE
--- NOTE | 2019-12-09 12:18 | EC ---
PATIENT:SAMANTHA SLOAN DATE OF SERVICE: 12/06/19 SEX: M MEDICAL RECORD: [id number] DATE OF : 46 LOCATION:[place] [address] AGE OF PATIENT: 74 ADMISSION DATE: 12/06/19 REFERRING PHYSICIAN: INTERPRETING PHYSICIAN: PRAVEENA MORGAN MD ECHOCARDIOGRAM REPORT ECHO CHARGES 4 ECHO COMPLETE Date: 12/07/19 CLINICAL DIAGNOSIS: DYSPNEA ECHOCARDIOGRAPHIC MEASUREMENTS (adult normal given) AC root (d.<3.7cm) 2.7 cm LV Septum d (<1.2 cm> 1.1 cm Valve Excursion 1.5 cm LV Septum (systole) 1.5 cm Left Atria (s.<4.0cm> 4.1 cm LVPW d(<1.2cm) 1.1 cm RV (d.<2.3cm) 3.4 cm LVPW (sytole) 1.2 cm LV diastole(<5.6CM) 5.1 cm MV E-F(>70mm/sec) cm LV systole 3.9 cm LVOT Diameter 2.0 cm MV exc.(>10mm) cm Est.ejection fraction (50-75%) % DOPPLER: LVIT cm/sec A 58 cm/sec E 82 cm/sec LA cm/sec RVSP 37.5 mmHg LVOT 104 cm/sec AOP1/2T m/s Asc. Ao 125 cm/sec RVOT 95 cm/sec RA cm/sec PA 105 cm/sec AV Gradient Peak 6.2 mmHg AV Mean 3.3 mmHg AV Area 3.0 cm MV Gradient Peak 5.1 mmHg MV Mean 2.0 mmHg MV Area cm COMMENTS: Marketing Manager: Gwen PRASAD Websphere Commerce Developer: 3 Dr. Villarreal TAPE# PACS Pericardial Effusion N DATE OF SERVICE: Adequate 2D echo, color flow and spectral Doppler, and M-mode No LVH. LV internal dimension normal. Wall motion is normal. EF is greater than or equal to 55%. Aortic valve is tricuspid. No evidence of stenosis by Doppler interrogation. Left atrium appears mildly elevated at 4.1 cm. Mitral valve shows no prolapse. Trace MR. Right-sided chambers grossly normal. Trace TR. ECHOCARDIOGRAM REPORT [id number] SAMANTHA SLOAN TRANSINT:[id number] Voice Confirmation ID: [id number] DOCUMENT ID: [id number] PRAVEENA MORGAN MD at 1218 CC: [id number] DICTATION DATE: 12/08/19 1132 INFORMATION ASSURANCE OFFICER: 12/08/19 2235 ADM IN [place] [id number] [place] [id number]
--- NOTE | 2019-12-09 12:30 | NUR ---
PC FROM FAMILY FRIEND, STATED THAT AMBULANCE WAS PICKING UP TO TAKE TO HOSPITAL, BUT SHE IS STABLE, PATIENT NOTIFIED OF EVENT
--- NOTE | 2019-12-09 15:00 | NUR ---
RESTNG WITH NO SIGNS OF DISTRESS, VSS, CONTINUES ON HF NC AT 7L, CALL LIGHT IN REACH, NO NEEDS AT THIS TIME, AN ACUTE CHANGE FROM PREVIOUS ASSESSMENT
--- NOTE | 2019-12-09 17:00 | NUR ---
DINNER TRAY TO BEDSIDE, ASSIST WITH SET UP AND INDEPENDENT WITH SET UP
[2019-12-10] VITALS (24 sets, daily range): BP systolic 92–148; BP diastolic 45–79
--- NOTE | 2019-12-10 00:45 | NUR ---
PATIENT SLEEPING WITH BIPAP IN PLACE NO CHANGES IN PATIENT CONDITION. CALL LIGHT WITHIN REACH, BED IN LOW POSITION.
[2019-12-10 05:06] LABS: HEMATOCRIT 26.8 % (42.0-54.0); HEMOGLOBIN 8.6 g/dL (13.5-17.5); MCH 30.3 pg (26.0-34.0); MCHC 32.1 g/dL (31.0-37.0); MCV 94.4 fL (80.0-100.0); MEAN PLATELET VOLUME 11.7 fL (7.4-10.4); PLATELET COUNT 102 10x3/uL (130-400); RBC 2.84 10x6/uL (4.20-6.10); RDW 14.5 % (11.5-14.5)
[2019-12-10 05:26] LABS: WBC 2.1 10x3/uL (4.8-10.8)
[2019-12-10 05:28] LABS: ANION GAP 9.2 mmol/L (8-16); CARBON DIOXIDE 30.7 mmol/L (21.0-32.0); CREATININE - SERUM 3.3 mg/dL (0.6-1.3); PHOSPHOROUS 4.6 mg/dL (2.5-4.9); POTASSIUM - SERUM 3.9 mmol/L (3.5-5.1)
--- NOTE | 2019-12-10 07:00 | NUR ---
AWAKE AND CONFUSED, ASSESSMENT COMPLETED PER FLOWSHEET, CALL LIGHT IN REACH, DENIES PAIN, WILL CONTINUE TO MONITOR
--- NOTE | 2019-12-10 08:00 | NUR ---
BREAKFAST TRAY TO BEDSIDE, ASSESM WITH SET UP AND INDEPENDENT WITH EATING
[2019-12-10 09:36] LABS: ANISOCYTOSIS OCC; LYMPHOCYTES 15 % (15-50); MONOCYTES 8 % (2-11); NEUTROPHILS 76 % (40-80); PLATELET ESTIMATE DECREASED
--- NOTE | 2019-12-10 14:05 | OP ---
PATIENT NAME: SAMANTHA SLOAN MEDICAL RECORD: [id number] :47 LOCATION:[facility] D.2314 ADMISSION DATE:12/06/19 SURGEON: DONTE NGUYEN MD DATE OF OPERATION: 12/08/2019 PREOPERATIVE DIAGNOSES: 1. Tdszr-ey-kcohzer renal failure. 2. Chronic obstructive pulmonary disease exacerbation. 3. Pneumonia. 4. Acute respiratory distress secondary to renal failure and fluid overload. POSTOPERATIVE DIAGNOSES: 1. Grwme-rz-aoibcno renal failure. 2. Chronic obstructive pulmonary disease exacerbation. 3. Pneumonia. 4. Acute respiratory distress secondary to renal failure and fluid overload. PROCEDURE: Right IJ 12.5 cm Trialysis catheter placement. SURGEON: Donte Nguyen MD REPORT OF PROCEDURE: The patient's right neck was prepped and draped in sterile fashion. A total of 5 mL of 1% lidocaine with epinephrine was infused into the surrounding tissues. Under ultrasound guidance, a needle was used to cannulate the right internal jugular vein and a guidewire was advanced with ease. Over this wire, a dilator was placed followed by the Trialysis catheter. The catheter aspirated nonpulsatile dark blood and flushed easily with normal saline. This was sutured into place with 4-0 nylons and dressed appropriately. COMPLICATIONS: None. CONDITION: Fair. ANESTHESIA: Local. BLOOD LOSS: Minimal. Procedure done in the ICU at the bedside. TRANSINT:[id number] Voice Confirmation ID: [id number] DOCUMENT ID: [id number] DONTE NGUYEN MD at 1405 CC: [id number] DICTATION DATE: 12/08/191955 CONSUMER SCIENCE TEACHER: 12/09/19 0537 ADM IN [facility] [address] [place] [id number]
--- NOTE | 2019-12-10 16:30 | NUR ---
ASSUMED CARE OF PT. PT SITTING IN BED WATCHING TV, BED ALARM ON. CALL LIGHT WITHIN REACH. VSS. DENIES ANY NEEDS AT THIS TIME, WILL CONT TO FOLLOW POC
--- NOTE | 2019-12-10 17:32 | NUR ---
OT NOTE: PT COMPLETED BED MOB TASKS WITH SBA. [phone] THANK YOU, KEVEN BARRIOS
--- NOTE | 2019-12-10 19:13 | MORECARE ---
CASE MANAGEMENT DISCHARGE SUMMARY PATIENT: SAMANTHA SLOAN UNIT: [id number] ADM DATE: 12/06/19 AGE: 74 : 46 SEX: M ROOM/BED: D.2314 AUTHOR: KRISTEN DUTTA PHYSICIAN: REFERRING PHYSICIAN: PRAVEENA MARTINI MD DATE OF SERVICE: 12/10/19 Discharge Plan Patient Name: SAMANTHA SLOAN [facility] [facility] 1945 Planned Disposition: Home Anticipated Discharge Date: Discharge Date: Expected LOS: Initial Reviewer: [email or web address] Initial Review Date: 12/10/2019 Generated: 12/10/19 8:13 pm DCPIA - Discharge Planning Initial Assessment Updated by [email or web address]: Nissa Dyer on 12/10/19 7:12 pm * Is the patient Alert and Oriented? Yes * How many steps to enter\exit or inside your home? * PCP [facility] * [facility] * Preadmission Environment Home with Family * ADLs Independent * Other Equipment B/P MACHINE * List name and contact numbers for known caregivers / representatives who currently or will assist patient after discharge: KRISTINA FLETCHER - SPOUSE- [phone] * Verbal permission to speak to the caregivers and representatives has been obtained from the patient. Yes * Community resources currently utilized None * Additional services required to return to the preadmission environment? No * Can the patient safely return to the preadmission environment? Yes * Has this patient been hospitalized within the prior 30 days at any hospital? No Patient Name: SAMANTHA SLOAN Page [id number] at 1913 All edits/amendments must be made on the electronic document DICTATION DATE: 12/10/191912 CHICKEN DRESSER: RY 12/10/191912 RPT#: [id number] DC DATE: STATUS: ADM IN [facility] [address] [place] [address] END OF REPORT
--- NOTE | 2019-12-10 19:20 | MORECARE ---
CASE MANAGEMENT DISCHARGE SUMMARY PATIENT: SAMANTHA SLOAN UNIT: [id number] ADM DATE: 12/06/19 AGE: 74 : 46 SEX: M ROOM/BED: D.2314 AUTHOR: LUZMARIA,DOC PHYSICIAN: REFERRING PHYSICIAN: PRAVEENA MARTINI MD DATE OF SERVICE: 12/10/19 Discharge Plan Patient Name: SAMANTHA SLOAN Facility: [facility]:[place] : 1945 Planned Disposition: Home Anticipated Discharge Date: Discharge Date: Expected LOS: Initial Reviewer: [email or web address] Initial Review Date: 12/10/2019 Generated: 12/10/19 8:20 pm Comments DCP- Discharge Planning Updated by [email or web address]: Nissa Dyer on 12/10/19 6:[address] Patient Name: SAMANTHA SLOAN Admission Status: ER Accout number: [id number] Admission Date: 12-06-2019 : 1945 Admission Diagnosis: Attending: AZALIA Current LOS: 4 Anticipated DC Date: Planned Disposition: Home Primary Insurance: [employer] PPO MCR ADVANT Discharge Planning Comments: CM met with patient at bedside after explaining CM role and obtaining verbal consent. Patient lives at home with his where he is independent with his care and plans to return there upon discharge. Patient feels this would be a safe discharge. CM discussed availability / needs of home health and medical equipment. Patient denies any discharge needs at this time. Patient states he will have his family drive him home upon discharge. Uncertain of d/c needs may need walk test for home 02. Uncertain if he will need outpatient dialysis at this time. CM will continue to follow and assist as needed with discharge planning / needs. Manager Clinical: Nissa Dyer DCPIA - Discharge Planning Initial Assessment Updated by [email or web address]: Nissa Dyer on 12/10/19 7:12 pm * Is the patient Alert and Oriented? Yes * How many steps to enter\exit or inside your home? * PCP GISE[facility] * [facility] * Preadmission Environment Home with Family * ADLs Independent * Other Equipment B/P MACHINE * List name and contact numbers for known caregivers / representatives who currently or will assist patient after discharge: KRISTINA FLETCHER - SPOUSE- [phone] * Verbal permission to speak to the caregivers and representatives has been obtained from the patient. Yes * Community resources currently utilized None * Additional services required to return to the preadmission environment? No * Can the patient safely return to the preadmission environment? Yes * Has this patient been hospitalized within the prior 30 days at any hospital? No Last DP export: 12/10/19 6:14 p Patient Name: SAMANTHA SLOAN Page 51912 at 1920 All edits/amendments must be made on the electronic document DICTATION DATE: 12/10/191919 COUNTER DISH CARRIER: RY 12/10/191919 RPT#: [id number] DC DATE: STATUS: ADM IN [facility] [address] [place] [address] END OF REPORT
[2019-12-11] VITALS (16 sets, daily range): BP systolic 127–150; BP diastolic 48–74; Ht 175.3 cm; Wt 75.6 kg
[2019-12-11 04:31] LABS: BASOPHILS 0 % (0-2); EOSINOPHILS 0 % (0-7); HEMATOCRIT 25.3 % (42.0-54.0); HEMOGLOBIN 8.3 g/dL (13.5-17.5); IMMATURE GRANULOCYTES 0.4 % (0-5); LYMPHOCYTES 15.5 % (15-50); MCH 30.4 pg (26.0-34.0); MCHC 32.8 g/dL (31.0-37.0); MCV 92.7 fL (80.0-100.0); MONOCYTES 8.3 % (2-11); NEUTROPHILS 75.8 % (40-80); PLATELET COUNT 102 10x3/uL (130-400); RBC 2.73 10x6/uL (4.20-6.10); RDW 14.7 % (11.5-14.5)
[2019-12-11 04:45] LABS: WBC 2.7 10x3/uL (4.8-10.8)
[2019-12-11 04:52] LABS: ANION GAP 9.9 mmol/L (8-16); CALCIUM 7.7 mg/dL (8.5-10.1); CARBON DIOXIDE 30.1 mmol/L (21.0-32.0); CREATININE - SERUM 3.9 mg/dL (0.6-1.3); PHOSPHOROUS 4.6 mg/dL (2.5-4.9)
--- NOTE | 2019-12-11 07:00 | NUR ---
REC'D REPORT AND RESUMED CARE, UP IN BED WATCHING TV, AAI, VSS, DENIES PAIN AT THIS TIME, O2 VIA 4L HFNC, LEFT UPPER ARM PIV SL, RIGHT IJ TRIALYSIS WITH NURSEPORT SL, CALL LIGHT IN REACH, SELF REPOSITIONS, ASSESSMENT COMPLETE PER FLOWSHEET
--- NOTE | 2019-12-11 07:45 | NUR ---
RIGHT IJ TRIALYSIS CATH DRESSING CHANGE COMPLETED, LEFT UPPER ARM PIV DC'D WITH CATHETER INTACT, UNABLE LTO CONTORL BLEEDING WITH PRESSURE, FIBULAR ADDED AND GAUZE DRESSING APPLIED, 0755 BREAKFAST TRAY TO BEDSIDE, INDEPENDENT WITH SET UP AND EATING
--- NOTE | 2019-12-11 09:08 | NUR ---
Nutrition follow-up: Pt sitting up eating breakfast; po intake ~50% of meal Dialysis starting Labs reviewed wt: 130# RDN will order Nepro with meals to increase kcal/protein intake RDN following.
--- NOTE | 2019-12-11 09:25 | NUR ---
HD BEGAN, PATIENT AAO, VSS WILL CONTINUE TO MONITOR
--- NOTE | 2019-12-11 12:53 | NUR ---
HD COMPLETED, 2 L OFF, VSS, AAO LUNCH TRAY TO BEDSIDE
--- NOTE | 2019-12-11 15:33 | NUR ---
OT NOTE: UPON ENTERING ROOM , PT WAS LIEING IN BED.. SOB. PT REPORTS THAT HE JUST GOT BACK INTO BED FROM USING BS COMMODE. ENCOURAGED PT TO SIT UP ON EOB TO PERFORM UE EXS FOR STRENGTHENING. PT REFUSED AT THIS TIME DUE TO FATIGUE AND SOB. WILL RE ATTEMPT. TENA TOMPKINS, OTR/L
--- NOTE | 2019-12-11 18:49 | NUR ---
NEW PATIENT TRANSFER FROM ICU VIA HOSPITAL BED. PATIENT IS AWAKE ALERT AND ORIENTED X 4. DENIES ANY NEEDS OR PAIN. WILL CONTINUE WITH PLAN OF CARE. SR UPX 2 BED IN LOW POSITION AND CALL LIGHT IN REACH.
--- NOTE | 2019-12-11 19:20 | NUR ---
REPORT RECEIVED, WILL CONTINUE POC. PATIENT IS AAOX4, LYING IN SEMI-FOLWERS POSITION. NO S/S OF DISTRESS OBSERVED, RR EVEN AND UNLABORED ON 4L HFNC. RT IJ TRIALYSIS SL. LT AKA. PATIENT DENIES NEEDS AT THIS TIME. CL IN REACH, BED LOCKED AND LOWERED. WILL CTM.
--- NOTE | 2019-12-11 23:12 | NUR ---
ROBERTO CARLOS KRAMER APN REGARDING TRIALYSIS ACCESS.
--- NOTE | 2019-12-11 23:15 | NUR ---
RECEIVED CALL BACK FROM VICENTE KRAMER WITH PERSMISSION TO USE NURSE ACCESS ON PATIENTS TRIALYSIS.
[2019-12-12 00:18] VITALS: BP 126/92
[2019-12-12 04:00] VITALS: BP 131/58
--- NOTE | 2019-12-12 04:06 | NUR ---
I have reviewed this patient and I concur with the Shift Assessment completed by the Licensed Practical Nurse today this shift.
[2019-12-12 05:50] LABS: BASOPHILS 0 % (0-2); EOSINOPHILS 0 % (0-7); HEMATOCRIT 25.6 % (42.0-54.0); HEMOGLOBIN 8.2 g/dL (13.5-17.5); IMMATURE GRANULOCYTES 0.3 % (0-5); LYMPHOCYTES 16.1 % (15-50); MCH 30.3 pg (26.0-34.0); MCV 94.5 fL (80.0-100.0); MEAN PLATELET VOLUME 11.7 fL (7.4-10.4); MONOCYTES 10.1 % (2-11); NEUTROPHILS 73.5 % (40-80); PLATELET COUNT 115 10x3/uL (130-400); RBC 2.71 10x6/uL (4.20-6.10); RDW 14.9 % (11.5-14.5)
[2019-12-12 06:23] LABS: ANION GAP 7.4 mmol/L (8-16); CALCIUM 7.3 mg/dL (8.5-10.1); CARBON DIOXIDE 32.2 mmol/L (21.0-32.0); POTASSIUM - SERUM 3.6 mmol/L (3.5-5.1)
[2019-12-12 06:24] LABS: CREATININE - SERUM 2.9 mg/dL (0.6-1.3); PHOSPHOROUS 3.2 mg/dL (2.5-4.9)
[2019-12-12 06:39] LABS: WBC 3.5 10x3/uL (4.8-10.8)
--- NOTE | 2019-12-12 07:32 | NUR ---
REPORT RECEIVED. WILL CONTINUE WITH POC. PT CURRENTLY LYING SEMI FOWLERS. CALL LIGHT W/I REACH. PT IS ASLEEP WITH COVERS OVER HIS HEAD. RR EVEN AND UNLABORED ON 4L 02. 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 PT DENIES ANY NEEDS AT THIS TIME. NO S/S OF DISTRESS NOTED. WILL CTM.
[2019-12-12 09:18] VITALS: BP 155/72
[2019-12-12 11:10] LABS: SPE - A/G RATIO 1.1 (0.7-1.7); SPE - ALBUMIN 2.7 g/dL (2.9-4.4); SPE - ALPHA-1 GLOBULIN 0.3 g/dL (0.0-0.4); SPE - ALPHA-2 GLOBULIN 0.8 g/dL (0.4-1.0); SPE - BETA GLOBULIN 0.8 g/dL (0.7-1.3); SPE - GAMMA GLOBULIN 0.4 g/dL (0.4-1.8); SPE - M-SPIKE Not Observed g/dL (Not Observed); SPE - TOTAL PROTEIN 5.1 g/dL (6.0-8.5)
--- NOTE | 2019-12-12 11:10 | NUR ---
BLADDER SCAN PERFORMED AND RECORDED 202ML TOTAL RETAINING. PT HAS VOIDED SEVERAL TIMES THIS AM. WILL RECORD AND CTM.
[2019-12-12 13:46] VITALS: BP 130/61
--- NOTE | 2019-12-12 16:08 | NUR ---
I AGREE WITH THE ASSESSMENT COMPLETED BY THE COPYMAN ON STAFF
[2019-12-12 17:49] VITALS: BP 127/54
--- NOTE | 2019-12-12 19:10 | NUR ---
BEDSIDE REPORT RECEIVED FROM DAY SHIFT, PT CARE ASSUMED. INTRODUCED SELF AND WROTE NAME ON BOARD. PT SITTING UP IN BED, WATCHING TV, AAOX4. DENIES ANY NEEDS AT THIS TIME. AT BEDSIDE. BED IN LOWEST POSITION, SR X1, CALL LIGHT WITHIN REACH. WILL CONTINUE TO MONITOR.
--- NOTE | 2019-12-12 19:51 | NUR ---
OT NOTE: PT COMPLETED BED MOB TASKS WITH SBA. PT COMPLETED SIT TO STAND WITH CGA/MIN A. PT COMPLETED BUE AROM AXS. PT COMPLETED FACE WASH WITH SETUP. PT O2 STAT IS LOW. NURSING NOTIFIED. PT EDUCATED ON PURSE LIPPED BREATHING AND O2 STATES RETURNED TO ACCEPTABLE RANGE. [phone] THANK YOU,EMELIA BACA
[2019-12-12 21:34] VITALS: BP 135/62
[2019-12-13] VITALS: BP 139/56
[2019-12-13 04:00] VITALS: BP 144/69
[2019-12-13 06:34] LABS: BASOPHILS 0 % (0-2); EOSINOPHILS 0.2 % (0-7); HEMATOCRIT 26.9 % (42.0-54.0); HEMOGLOBIN 8.7 g/dL (13.5-17.5); IMMATURE GRANULOCYTES 0.7 % (0-5); LYMPHOCYTES 17.2 % (15-50); MCH 30.6 pg (26.0-34.0); MCHC 32.3 g/dL (31.0-37.0); MCV 94.7 fL (80.0-100.0); MEAN PLATELET VOLUME 12.2 fL (7.4-10.4); MONOCYTES 9.5 % (2-11); NEUTROPHILS 72.4 % (40-80); PLATELET COUNT 113 10x3/uL (130-400); RBC 2.84 10x6/uL (4.20-6.10); RDW 14.9 % (11.5-14.5)
[2019-12-13 06:51] LABS: ANION GAP 7.3 mmol/L (8-16); CALCIUM 7.9 mg/dL (8.5-10.1); CARBON DIOXIDE 32.2 mmol/L (21.0-32.0); CREATININE - SERUM 3.6 mg/dL (0.6-1.3); PHOSPHOROUS 3.5 mg/dL (2.5-4.9); POTASSIUM - SERUM 3.5 mmol/L (3.5-5.1)
[2019-12-13 06:57] LABS: WBC 4.4 10x3/uL (4.8-10.8)
--- NOTE | 2019-12-13 07:17 | NUR ---
REPORT RECEIVED. WILL CONTINUE WITH POC. PT CURRENTLY LYING SEMI FOWLERS. CALL LIGHT W/I REACH. FAMILY AT BEDSIDE. RR EVEN AND UNLABORED ON BIPAP. R.IJ TRIALYSIS SALINE LOCKED. NO S/S OF DISTRESS NOTED. PT ASLEEP WITH EYES CLOSED AT THIS TIME. WILL CTM.
--- NOTE | 2019-12-13 08:42 | NUR ---
PT PUSHED CALL LIGHT. ENTERED THE ROOM SHORTLY THEREAFTER AND PT STATES "MY THING IN MY NECK FELL OUT." FOUND THE TRIALYSIS, CATH FULLY INTACT, LYING IN THE BED. NO BLEEDING OR S/S OF HEMATOMA PRESENT FROM SITE. PLACED PRESSURE DRESSING AROUND SITE AND HELD PRESSURE FOR 10 MINUTES. NOTIFIED JACINTO CORREIA APN WHO TALKED TO WHO TELEPHONE ORDERED TO PLACE SURGERY CONSULT FOR HEMESPLIT PLACEMENT. CONSULT PLACED. WILL CTM.
[2019-12-13 09:19] VITALS: BP 123/61
[2019-12-13 10:10] LABS: HEPATITIS C ANTIBODY <0.1 S/CO RAT (0.0-0.9)
--- NOTE | 2019-12-13 11:26 | NUR ---
INITIATED NEW PIV TO THE LEFT FOREARM 20GA X1 ATTEMPT. PT TOLERATED WELL. CURRENTLY SALINE LOCKED. WILL CTM.
--- NOTE | 2019-12-13 12:43 | NUR ---
PER AUTMUN IN SURGERY, PATIENT WILL HAVE PROCEDURE UNDER LOCAL TODAY. LUNCH TRAY AND DRINK TAKEN FROM PATIENT.
--- NOTE | 2019-12-13 13:51 | NUR ---
PT PREOPED AND TAKEN TO SURGERY.
--- NOTE | 2019-12-13 14:40 | NUR ---
OT NOTE: PT PERFORMED WELL TODAY. BED MOB WITH SPV; ABLE TO TRANSFER TO BS COMMODE WITH MIN ASSIST; MAX ASSIST WITH TOILET HYGIENE; MOD ASSIST WITH LE DRESSING; SET UP WITH UPPER BODY BATHING AND DONNING GOWN; TRANSFER BACK TO BED WITH MIN ASSIST/CGA WITH USE OF WALKER. MUCH MORE SAFE WITH WALKER DURING TRANSFERS. TENA TOMPKINS, OTR/L [phone]
--- NOTE | 2019-12-13 14:49 | NUR ---
PT RETURNED FROM OR STATING "IM NOT DOING IT, THEY SAID THEY WERE GONNA PUT CANCER IN ME." PT REFUSING HEMESPLIT PLACEMENT.
--- NOTE | 2019-12-13 15:09 | NUR ---
OT NOTE: PT COMPLETED SUPINE TO SIT WITH SBA.PT COMPLETED BED TO BSC TRANSFER WITH CGA. PT COMPLETED TOILETING WITH SPV. PT COMPLETED TOILET HYGIENE TASKS WITH LORI Yusuf [phone] THANK YOU,KEVEN BARRIOS
[2019-12-13 18:37] VITALS: BP 159/74
--- NOTE | 2019-12-13 19:10 | NUR ---
BEDSIDE REPORT RECEIVED FROM DAY SHIFT, PT CARE ASSUMED. WROTE NAME ON BOARD. PT SITTING UP IN BED, AAOX4, VISITING WITH AT BEDSIDE. DENIES PAIN OR ANY OTHER NEEDS AT THIS TIME. BED IN LOWEST POSITION, SR X1, CALL LIGHT AND URINAL WITHIN REACH. WILL CONTINUE TO MONITOR.
[2019-12-13 20:00] VITALS: BP 178/75
[2019-12-14] VITALS: BP 126/56
[2019-12-14 04:00] VITALS: BP 152/50
[2019-12-14 06:04] LABS: BASOPHILS 0 % (0-2); EOSINOPHILS 0 % (0-7); HEMATOCRIT 26.7 % (42.0-54.0); HEMOGLOBIN 8.5 g/dL (13.5-17.5); IMMATURE GRANULOCYTES 0.6 % (0-5); LYMPHOCYTES 17.5 % (15-50); MCH 30.1 pg (26.0-34.0); MCHC 31.8 g/dL (31.0-37.0); MCV 94.7 fL (80.0-100.0); MEAN PLATELET VOLUME 12.1 fL (7.4-10.4); NEUTROPHILS 71.9 % (40-80); PLATELET COUNT 124 10x3/uL (130-400); RBC 2.82 10x6/uL (4.20-6.10); RDW 15.1 % (11.5-14.5); WBC 3.6 10x3/uL (4.8-10.8)
[2019-12-14 06:25] LABS: ANION GAP 10.4 mmol/L (8-16); CREATININE - SERUM 3.9 mg/dL (0.6-1.3); PHOSPHOROUS 3.7 mg/dL (2.5-4.9); POTASSIUM - SERUM 3.4 mmol/L (3.5-5.1)
--- NOTE | 2019-12-14 07:24 | NUR ---
PT AWAKE AND ORIENTED, NO COMPLAINTS OR CONCERNS THIS MORNING. INSTRUCTED BY HEAD OF COMMISSION DEPARTMENT NURSE TO SPEAK TO PT AND MAKE SURE UNDERERSTANDING ABOUT DIALYSIS AND WHAT REFUSAL MEANS IS MET. PT LYING IN BED, AT BEDSIDE. CL IN REACH, SRX2. ALL QUESTIONS ANSWERED TO THE BEST OF MY ABILITY.
[2019-12-14 08:53] VITALS: BP 141/75
--- NOTE | 2019-12-14 09:09 | NUR ---
PT AT [facility], DR JHA IS SPEAKING TO HER. REIDERATED THAT THE PT UNDERSTOOD AND VERBALIZED UNDERSTANDING OF DIALYSIS AND DIALYSIS CATHETER PLACEMENT. STATES WELL NO HE MISUNDERSTOOD, DR. JHA STATED HE VIVIANA (THE PT) HAD UNDERSTOOD WHAT IT ALL MEANT DR. CALIX MADE IT EXPLICITY CLEAR. STATES PT HAS CHANGED HIS MIND, DR. WRIGHT WANTS TO VERBALIZE WITH THE PT THAT HE DEFFINMAITE DOES WANT THE DIALYSIS.
--- NOTE | 2019-12-14 09:22 | NUR ---
PT CURRENTLY COMPLIENT WITH DIALYSIS. CALLED AND SPOKE TO DR. GOLDSTEIN, STATES HE WILL PLACE A TRIALYSIS. CL IN REACH, SRX2.
--- NOTE | 2019-12-14 14:04 | NUR ---
I have reviewed this patient and I concur with the Shift Assessment completed by the Licensed Practical Nurse today this shift.
--- NOTE | 2019-12-14 17:15 | NUR ---
ASSISTED DR. CALIX WITH TRIALYSIS CATHETER PLACEMENT EARLIER TODAY. PT DID NOT TOLERATE WELL BUT WAS ABLE TO FINISH. BACK FROM DIALYSIS, TOLERATED WELL AND STATES HE'S ALREADY BREATHING EASIER. AT BEDSIDE. CL IN REACH,S RX2.
--- NOTE | 2019-12-14 19:56 | NUR ---
RECEIVED UP IN BED WITH EYES OPEN AND SOUSE AT BEDSIDE.REMAINS ON 4 LITERS PER HF CANNULA. ALERT AND ORIENTED X4. UP WITH ASSIST. LUNG SOUNDS INSPIRATORY WHEEZES AND RUBS. TRIALYSIS TO RIGHT SIDE OF NECK. [place]. 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 DENIES ANY NEEDS AT THIS TIME.
[2019-12-14 20:00] VITALS: BP 152/66
[2019-12-15] VITALS (7 sets, daily range): BP systolic 128–152; BP diastolic 46–73
[2019-12-15 06:49] LABS: BASOPHILS 0 % (0-2); EOSINOPHILS 0.2 % (0-7); HEMATOCRIT 25.7 % (42.0-54.0); HEMOGLOBIN 8.2 g/dL (13.5-17.5); IMMATURE GRANULOCYTES 0.2 % (0-5); LYMPHOCYTES 22.2 % (15-50); MCHC 31.9 g/dL (31.0-37.0); MCV 94.1 fL (80.0-100.0); MEAN PLATELET VOLUME 11.4 fL (7.4-10.4); MONOCYTES 12.4 % (2-11); PLATELET COUNT 118 10x3/uL (130-400); RBC 2.73 10x6/uL (4.20-6.10); WBC 4.4 10x3/uL (4.8-10.8)
[2019-12-15 07:18] LABS: ANION GAP 8.4 mmol/L (8-16); CALCIUM 7.4 mg/dL (8.5-10.1); CARBON DIOXIDE 31.1 mmol/L (21.0-32.0); PHOSPHOROUS 2.9 mg/dL (2.5-4.9); POTASSIUM - SERUM 3.5 mmol/L (3.5-5.1)
[2019-12-15 07:19] LABS: CREATININE - SERUM 2.8 mg/dL (0.6-1.3)
--- NOTE | 2019-12-15 08:07 | NUR ---
PT SITTING UP IN BED. SPOUSE AT BEDSIDE. AXO. DENIES NEEDS OR PAIN AT THIS TIME. RR EVEN AND UNLABORED. BED IN LOWEST POSITION. CALL LIGHT WITHIN REACH. WILL CONTINUE TO MONITOR.
--- NOTE | 2019-12-15 11:14 | MORECARE ---
CASE MANAGEMENT DISCHARGE SUMMARY PATIENT: SAMANTHA SLOAN UNIT: [id number] ADM DATE: 12/06/19 AGE: 74 : 47 SEX: M ROOM/BED: D.3804 AUTHOR: LUZMARIA,DOC PHYSICIAN: REFERRING PHYSICIAN: PRAVEENA MARTINI MD DATE OF SERVICE: 12/15/19 Discharge Plan Patient Name: SAMANTHA SLOAN Facility: [facility]:[place] : 1945 Planned Disposition: Home Anticipated Discharge Date: Discharge Date: Expected LOS: Initial Reviewer: [email or web address] Initial Review Date: 12/10/2019 Generated: 12/15/19 12:14 pm Comments DCP- Discharge Planning Updated by [email or web address]: Nissa Dyer on 12/15/19 10:[address] CM sent message to [facility] Ts[facility] for outpatient dialysis placement. CM will continue to follow and assist as needed with discharge planning / needs. DCP- Discharge Planning Updated by [email or web address]: Nissa Dyer on 12/10/19 6:[address] Patient Name: SAMANTHA SLOAN Admission Status: ER Accout number: [id number] Admission Date: 12-06-2019 : 1945 Admission Diagnosis: Attending: AZALIA Current LOS: 4 Anticipated DC Date: Planned Disposition: Home Primary Insurance: [employer] CHOICE PPO MCR [employer] Discharge Planning Comments: CM met with patient at bedside after explaining CM role and obtaining verbal consent. Patient lives at home with his where he is independent with his care and plans to return there upon discharge. Patient feels this would be a safe discharge. CM discussed availability / needs of home health and medical equipment. Patient denies any discharge needs at this time. Patient states he will have his family drive him home upon discharge. Uncertain of d/c needs may need walk test for home 02. Uncertain if he will need outpatient dialysis at this time. CM will continue to follow and assist as needed with discharge planning / needs. Sales Planner: Nissa Dyer DCPIA - Discharge Planning Initial Assessment Updated by [email or web address]: Nissa Dyer on 12/10/19 7:12 pm * Is the patient Alert and Oriented? Yes * How many steps to enter\exit or inside your home? * PCP GISELE * Pharmacy [facility] * Preadmission Environment Home with Family * ADLs Independent * Other Equipment B/P MACHINE * List name and contact numbers for known caregivers / representatives who currently or will assist patient after discharge: KRISTINA FLETCHER - SPOUSE- [phone] * Verbal permission to speak to the caregivers and representatives has been obtained from the patient. Yes * Community resources currently utilized None * Additional services required to return to the preadmission environment? No * Can the patient safely return to the preadmission environment? Yes * Has this patient been hospitalized within the prior 30 days at any hospital? No Last DP export: 12/10/19 6:20 p Patient Name: SAMANTHA SLOAN Page [phone] at 1114 All edits/amendments must be made on the electronic document DICTATION DATE: 12/15/191113 MONUMENT SETTER: RY 12/15/194 RPT#: [id number] DC DATE: STATUS: ADM IN [facility] [address] [place] [address] END OF REPORT
--- NOTE | 2019-12-15 16:35 | NUR ---
I have reviewed this patient and I concur with the Shift Assessment completed by the Licensed Practical Nurse today this shift.
--- NOTE | 2019-12-15 22:07 | NUR ---
INITIAL ROUNDS COMPLETED AT 1915 HRS. NO DISTRESS NOTED. AT BEDSIDE. ASSESSMENT COMPLETED AT 2015 HRS. VSS. ALERT AND ORIENTED TO PERSON, PLACE AND TIME. MAE. ADAMES NOTED. O2 3LHF. INSPIRATORY WHEEZES NOTED THROUGHOUT LUNG GARCÍA. ABD SOFT WITH ACTIVE BS NOTED. IV TO UPPER L ARM SL. R NECK TRIALYSIS CLEAN, DRY AND INTACT. BRUISES NOTED TO BILAT ARMS. BUTT SLIGHTLY RED. PM MEDS GIVEN. PT CURRENTLY RESTING WITH EYES CLOSED. RESP EVEN AND REGULAR. BIPAP IN USE. SR UP X2, CALL LIGHT WITHIN REACH AND AT BEDSIDE.
--- NOTE | 2019-12-15 23:30 | NUR ---
BIPAP OFF PER REQUEST. IVAB INFUSING AT THIS TIME. CALL LIGHT WITHIN REACH.
--- NOTE | 2019-12-16 00:43 | NUR ---
HIBICLENS BATH GIVEN AT HS.
--- NOTE | 2019-12-16 02:04 | NUR ---
O2 OFF. O2 3LHF PLACED BACK ON PT. O2 SAT 78%. O2 TO 91% AFTER 5 MINUTES. PT PULLED UP IN BED. SR UP X2, CALL LIGHT WITHIN REACH, CALL LIGHT WITHIN REACH AND AT BEDSIDE.
--- NOTE | 2019-12-16 04:01 | NUR ---
PT RESTING WITH EYES CLOSED. RESP EVEN AND REGULAR. BIPAP IN USE. NO URINE OUTPUT FOR THE SHIFT. SR UP X2, CALL LIGHT WITHIN REACH AND AT BEDSIDE.
[2019-12-16 04:39] VITALS: BP 145/85
--- NOTE | 2019-12-16 05:25 | NUR ---
VSS THIS AM. VOIDED 400CC OF DARK URINE. AM LAB DRAWN VIA NURSE PORT OF R NECK TRIALYSIS. NPO FOR AM HEMOSPLIT PLACEMENT. NEEDS MET; WILL CONTINUE TO MONITOR.
[2019-12-16 06:34] LABS: ANION GAP 9.6 mmol/L (8-16); CALCIUM 7.6 mg/dL (8.5-10.1); CARBON DIOXIDE 30.7 mmol/L (21.0-32.0); CREATININE - SERUM 3.5 mg/dL (0.6-1.3); PHOSPHOROUS 3.4 mg/dL (2.5-4.9); POTASSIUM - SERUM 3.3 mmol/L (3.5-5.1)
--- NOTE | 2019-12-16 07:31 | NUR ---
REPORT RECIEVED. PT SITTING SEMI FOWLERS IN BED. RR EVEN AND UNLABORED ON 3L NC. PT IS NPO FOR A HEMOSPLIT PLACEMENT TODAY. HE HAS A L UPPER ARM PIV THAT IS SL AND A R NECK TRIALYSIS. BED LOCKED AND IN LOWEST POSITION, CALL LIGHT WITHIN REACH. WILL CTM
[2019-12-16 08:16] LABS: BASOPHILS 0 % (0-2); EOSINOPHILS 0 % (0-7); HEMATOCRIT 26.5 % (42.0-54.0); HEMOGLOBIN 8.5 g/dL (13.5-17.5); IMMATURE GRANULOCYTES 0.2 % (0-5); LYMPHOCYTES 18.1 % (15-50); MCH 30.4 pg (26.0-34.0); MCHC 32.1 g/dL (31.0-37.0); MCV 94.6 fL (80.0-100.0); MEAN PLATELET VOLUME 12.7 fL (7.4-10.4); MONOCYTES 14.5 % (2-11); NEUTROPHILS 67.2 % (40-80); RDW 14.9 % (11.5-14.5); WBC 5.4 10x3/uL (4.8-10.8)
[2019-12-16 08:19] LABS: PLATELET COUNT 153 10x3/uL (130-400)
--- NOTE | 2019-12-16 10:00 | NUR ---
PT RETURNED TO ROOM FROM OR. VSS. PT TAKIN TO DIALYSIS AT THIS TIME.
--- NOTE | 2019-12-16 13:36 | NUR ---
PT RETURNED TO ROOM FROM DIALYSIS.
--- NOTE | 2019-12-16 15:53 | NUR ---
Rehab Note (Late Entry from 12/13/2019)- [facility] THe patient has [employer] insurance and requires a PreAuth prior to an acute inpatient rehab stay. PreAuth was started & faxed into [employer] for review on 12/13/2019, continue to await determination on 12/16/2019. Will continue to follow at this time. Thank you for this referral! Nidia Lyons RN Clinical Liaison, [facility] Rehab
--- NOTE | 2019-12-16 17:02 | MORECARE ---
CASE MANAGEMENT DISCHARGE SUMMARY PATIENT: SAMANTHA SLOAN UNIT: [id number] ADM DATE: 12/06/19 AGE: 74 : [birth year] SEX: M ROOM/BED: D.2134 AUTHOR: LUZMARIA,DOC PHYSICIAN: REFERRING PHYSICIAN: PRAVEENA MARTINI MD DATE OF SERVICE: 12/16/19 Discharge Plan Patient Name: SAMANTHA SLOAN Facility: [facility]:[place] : 1945 Planned Disposition: Home with Home Health Anticipated Discharge Date: 12/10/19 Discharge Date: Expected LOS: 4 Initial Reviewer: [email or web address] Initial Review Date: 12/10/2019 Generated: 12/16/19 6:01 pm DCP- Discharge Planning Updated by [email or web address]: Nissa Dyer on 12/15/19 10:[address] CM sent message to [facility] Ts[facility] for outpatient dialysis placement. CM will continue to follow and assist as needed with discharge planning / needs. DCP- Discharge Planning Updated by [email or web address]: Nissa Dyer on 12/10/19 6:[address] Patient Name: SAMANTHA SLOAN Admission Status: ER Accout number: [id number] Admission Date: 12-06-2019 : 1945 Admission Diagnosis: Attending: AZALIA Current LOS: 4 Anticipated DC Date: Planned Disposition: Home Primary Insurance: [employer] CHOICE PPO MCR ADV[employer] Discharge Planning Comments: CM met with patient at bedside after explaining CM role and obtaining verbal consent. Patient lives at home with his where he is independent with his care and plans to return there upon discharge. Patient feels this would be a safe discharge. CM discussed availability / needs of home health and medical equipment. Patient denies any discharge needs at this time. Patient states he will have his family drive him home upon discharge. Uncertain of d/c needs may need walk test for home 02. Uncertain if he will need outpatient dialysis at this time. CM will continue to follow and assist as needed with discharge planning / needs. Superintendent Plant: Nissa Dyer DCPIA - Discharge Planning Initial Assessment Updated by [id number]: Nissa Dyer on 12/10/19 7:12 pm * Is the patient Alert and Oriented? Yes * How many steps to enter\exit or inside your home? * PCP GISELE * [facility] * Preadmission Environment Home with Family * ADLs Independent * Other Equipment B/P MACHINE * List name and contact numbers for known caregivers / representatives who currently or will assist patient after discharge: KRISTINA FLETCHER - SPOUSE- [phone] * Verbal permission to speak to the caregivers and representatives has been obtained from the patient. Yes * Community resources currently utilized None * Additional services required to return to the preadmission environment? No * Can the patient safely return to the preadmission environment? Yes * Has this patient been hospitalized within the prior 30 days at any hospital? No Coverage Notice Reviewer: [email or web address] Scott Notice Issued Date-Time: 12/16/2019 13:55 Notice Type: IM Discharge Notice Notice Delivered To: Patient Relationship to Patient: Clinical Material Handler Name: Delivery Method: HAND - Hand Delivered Cata Days: Prior Verbal Notification: Recipient Understood Notice: Yes Recipient Signature: Yes Med Rec Note Co-signed by Attending: Coverage Notice Comment: [facility] Reviewer: [id number] Scott Notice Issued Date-Time: 12/16/2019 13:55 Notice Type: IM Discharge Notice Notice Delivered To: Patient Relationship to Patient: Clinical Material Handler Name: Delivery Method: HAND - Hand Delivered Cata Days: Prior Verbal Notification: Recipient Understood Notice: Yes Recipient Signature: Yes Med Rec Note Co-signed by Attending: Coverage Notice Comment: Last DP export: 12/15/19 10:14 a Patient Name: SAMANTHA SLOAN Page 67765 at 1702 All edits/amendments must be made on the electronic document DICTATION DATE: 12/16/[address] SUPERVISOR: RY 12/16/19 170 RPT#: [id number] DC DATE: STATUS: ADM IN [facility] [address] [place] [address] END OF REPORT
--- NOTE | 2019-12-16 17:11 | MORECARE ---
CASE MANAGEMENT DISCHARGE SUMMARY PATIENT: SAMANTHA SLOAN UNIT: [id number] ADM DATE: 12/06/19 AGE: 74 : [birth year] SEX: M ROOM/BED: D.0030 AUTHOR: LUZMARIA,DOC PHYSICIAN: REFERRING PHYSICIAN: PRAVEENA MARTINI MD DATE OF SERVICE: 12/16/19 Discharge Plan Patient Name: SAMANTHA SLOAN Facility: [facility]:[place] : 1945 Planned Disposition: Home with Home Health Anticipated Discharge Date: 12/10/19 Discharge Date: Expected LOS: 4 Initial Reviewer: [email or web address] Initial Review Date: 12/10/2019 Generated: 12/16/19 6:11 pm Comments DCP- Discharge Planning Updated by [email or web address]: Kory Scott on 12/16/19 4:[address] Patient Name: SAMANTHA SLOAN Admission Status: ER Accout number: [id number] Admission Date: 12-06-2019 : 1945 Admission Diagnosis: Attending: AZALIA Current LOS: 10 Anticipated DC Date: 12-10-2019 Planned Disposition: Home with Home Health Primary Insurance: [employer] [facility] PLANNED EXTERNAL PROVIDER: [employer] [facility] Discharge Planning Comments: CM RECEIVED ORDER FOR INPATIENT REHAB PRESCREENING. CM MET WITH PT AND SPOUSE IN ROOM TO DISCUSS DISCHARGE NEEDS AND PLANNING. SAMANTHA SLOAN provided verbal consent to discuss current and ongoing needs with/in the presence of: SPOUSE, KRISTINA. CM DISCUSSED AVAILABILITY OF HOME HEALTH, REHAB SERVICES AND MEDICAL EQUIPMENT. PT DENIES NEED FOR REHAB PLACEMENT. PT'S SPOUSE REPORTS ABILITY TO CARE FOR PT AT HOME AND WOULD LIKE HOME HEALTH FOR NURSING SHE "DOES EVERYTHING ELSE HERSELF." SPOUSE TO TRANSPORT HOME AT DISCHARGE. CHOICE FOR [employer] [facility] FROM [place] SIGNED PT HAS USED THEM IN THE PAST. IMPORTANT MESSAGE FROM MEDICARE PROVIDED AND EXPLAINED. CM TO FOLLOW AND ASSIST NEEDED. PT NOR SPOUSE WANT REHAB PLACEMENT AND PLAN FOR PT TO GO HOME WITH ASSISTANCE OF SPOUSE WHO WILL TRANSPORT HOME AND TO DIALYSIS WHEN CLINIC IS ARRANGED. CM WAITING ON OUTPATIENT CLINIC ARRANGEMENT; CM TO ARRANGE HOME HEALTH OBSERVATION AND ASSESSMENT WITH PHYSICIAN AGREEMENT AND ORDER. Division Operations Manager: Kory Scott DCP- Discharge Planning Updated by [email or web address]: Nissa Dyer on 12/15/19 10:[address] CM sent message to [facility] Ts[facility] for outpatient dialysis placement. CM will continue to follow and assist as needed with discharge planning / needs. DCP- Discharge Planning Updated by [id number]: Nissa Dyer on 12/10/19 6:[address] Patient Name: SAMANTHA SLOAN Admission Status: ER Accout number: [id number] Admission Date: 12-06-2019 : 1945 Admission Diagnosis: Attending: AZALIA Current LOS: 4 Anticipated DC Date: Planned Disposition: Home Primary Insurance: [employer] CHOICE PPO MCR [facility] Discharge Planning Comments: CM met with patient at bedside after explaining CM role and obtaining verbal consent. Patient lives at home with his where he is independent with his care and plans to return there upon discharge. Patient feels this would be a safe discharge. CM discussed availability / needs of home health and medical equipment. Patient denies any discharge needs at this time. Patient states he will have his family drive him home upon discharge. Uncertain of d/c needs may need walk test for home 02. Uncertain if he will need outpatient dialysis at this time. CM will continue to follow and assist as needed with discharge planning / needs. Division Operations Manager: Nissa Dyer DCPIA - Discharge Planning Initial Assessment Updated by [id number]: Nissa Dyer on 12/10/19 7:12 pm * Is the patient Alert and Oriented? Yes * How many steps to enter\\exit or inside your home? * PCP GISELE * [facility] * Preadmission Environment Home with Family * ADLs Independent * Other Equipment B/P MACHINE * List name and contact numbers for known caregivers / representatives who currently or will assist patient after discharge: KRISTINA FLETCHER - SPOUSE- [phone] * Verbal permission to speak to the caregivers and representatives has been obtained from the patient. Yes * Community resources currently utilized None * Additional services required to return to the preadmission environment? No * Can the patient safely return to the preadmission environment? Yes * Has this patient been hospitalized within the prior 30 days at any hospital? No Coverage Notice Reviewer: [email or web address] - Kory Scott Notice Issued Date-Time: 12/16/2019 13:55 Notice Type: IM Discharge Notice Notice Delivered To: Patient Relationship to Patient: Derrick Man Name: Delivery Method: HAND - Hand Delivered Cata Days: Prior Verbal Notification: Recipient Understood Notice: Yes Recipient Signature: Yes Med Rec Note Co-signed by Attending: Coverage Notice Comment: [facility] Reviewer: [email or web address] Annie Scott Notice Issued Date-Time: 12/16/2019 13:55 Notice Type: IM Discharge Notice Notice Delivered To: Patient Relationship to Patient: Derrick Man Name: Delivery Method: HAND - Hand Delivered Cata Days: Prior Verbal Notification: Recipient Understood Notice: Yes Recipient Signature: Yes Med Rec Note Co-signed by Attending: Coverage Notice Comment: Last DP export: 12/16/19 4:02 p Patient Name: SAMANTHA SLOAN Page [phone] at 1711 All edits/amendments must be made on the electronic document DICTATION DATE: 12/16/191710 WORKFORCE SPECIALIST: RY 12/16/191710 RPT#: [id number] DC DATE: STATUS: ADM IN [facility] [address] [place] [address] END OF REPORT
--- NOTE | 2019-12-16 17:25 | NUR ---
I have reviewed this patient and I concur with the Shift Assessment completed by the Licensed Practical Nurse today this shift.
[2019-12-16 17:35] VITALS: BP 125/54
--- NOTE | 2019-12-16 19:49 | NUR ---
OT NOTE: PT COMPLETED FACE AND HAND HYGIENE WITH SET UP. PT COMPLETED BED MOB WITH SBA. [phone] THANK YOU, KEVEN BARRIOS
[2019-12-16 20:00] VITALS: BP 110/50
--- NOTE | 2019-12-16 21:44 | NUR ---
EVENING ROUNDS COMPLETED. AAOX4 VSS, ALTHOUGH BP 110/50. ON REASSESMENT, BP IS 118/39. PT IS TO RECIEVE BUMEX 2.5MG/16ML AT THIS TIME. CALLED AND NOTIFY RAJESH ZHANG, TO DISCUSS PT SITUATION. HE STATED ITS OK TO GIVE BOTH MEDS. WILL ADMINISTER AND CTM.
[2019-12-17 04:00] VITALS: BP 123/56
[2019-12-17 06:13] LABS: BASOPHILS 0 % (0-2); EOSINOPHILS 0 % (0-7); HEMATOCRIT 26.7 % (42.0-54.0); HEMOGLOBIN 8.3 g/dL (13.5-17.5); IMMATURE GRANULOCYTES 0.2 % (0-5); LYMPHOCYTES 10.1 % (15-50); MCHC 31.1 g/dL (31.0-37.0); MCV 96.4 fL (80.0-100.0); MEAN PLATELET VOLUME 12.5 fL (7.4-10.4); MONOCYTES 17.2 % (2-11); NEUTROPHILS 72.5 % (40-80); PLATELET COUNT 144 10x3/uL (130-400); RBC 2.77 10x6/uL (4.20-6.10); RDW 15.3 % (11.5-14.5); WBC 4.7 10x3/uL (4.8-10.8)
[2019-12-17 06:42] LABS: CALCIUM 7.4 mg/dL (8.5-10.1); CARBON DIOXIDE 34.6 mmol/L (21.0-32.0); PHOSPHOROUS 3.4 mg/dL (2.5-4.9); POTASSIUM - SERUM 3.6 mmol/L (3.5-5.1)
--- NOTE | 2019-12-17 08:13 | NUR ---
PATIENT IS SITTING UP IN BED EATTING BREAKFAST . AT BEDSIDE. DIALYSIS HAS CALLED FOR HIM. HE IS AGREEING TO IT.
--- NOTE | 2019-12-17 08:34 | NUR ---
PATIENT IS IN DIALYSIS NOW.
[2019-12-17 09:47] VITALS: BP 116/85
--- NOTE | 2019-12-17 13:19 | NUR ---
PATIENT IS BACK FROM DIALYSIS AND HE IS SITTING UP IN BED EATTING LUNCH. AT BEDSIDE.
--- NOTE | 2019-12-17 14:12 | NUR ---
Nutrition Follow-up: Pt off floor for HD at time of visit this AM. Family reports that he has been eating well; breakfast interrupted this AM to bring to HD. Awaiting HD placement. Diet: Renal PO intake: 50-100% overall Wt: 166.4# (12/16); 208.3# (12/12) [fluid/scale discrepancy?] Last BM: 12/16 Labs noted: K+ 3.6, Ca 7.4, PO4 3.4 Meds noted: Lasix, Prednisone, Nephrovite -Continue current diet as tolerated. -Offer Nepro if intake <50%. -Monitor wt; noted daily wts ordered. -RD following.
--- NOTE | 2019-12-17 14:36 | NUR ---
REPORTED THE PATIENT HAVING CRAMPS IN HIS LEFT HAND TO DR JOSEPH. ORDERING A MAGNESIUM LEVEL DRAWN.
[2019-12-17] MEDS ORDERED: NORVASC5 MG PO (15:53)
[2019-12-17] MEDS ORDERED: LASIX40 MG PO (15:54)
[2019-12-17] MEDS ORDERED: PREDNISONE10 MG PO (15:55)
[2019-12-17] MEDS ORDERED: PEPCID PO (16:01)
--- NOTE | 2019-12-17 16:47 | MORECARE ---
CASE MANAGEMENT DISCHARGE SUMMARY PATIENT: SAMANTHA SLOAN UNIT: [id number] ADM DATE: 12/06/19 AGE: 74 : 47 SEX: M ROOM/BED: D.2134 AUTHOR: LUZMARIA,DOC PHYSICIAN: REFERRING PHYSICIAN: PRAVEENA MARTINI MD DATE OF SERVICE: 12/17/19 Discharge Plan Patient Name: SAMANTHA SLOAN Facility: [facility]:[place] : 1945 Planned Disposition: Home Anticipated Discharge Date: 12/17/19 Discharge Date: Expected LOS: 11 Initial Reviewer: [email or web address] Initial Review Date: 12/10/2019 Generated: 12/17/19 5:47 pm Comments DCP- Discharge Planning Updated by [id number]: Kory Scott on 12/17/19 3:[address] Patient Name: SAMANTHA SLOAN Encounter No: [id number] : 1945 Primary Insurance: [employer] CHOICE PPO M[employer]ANT Anticipated DC Date: 12-17-2019 Planned Disposition: Home DCP follow-up note: CM RECEIVED OUTPATIENT CLINIC WELCOME LETTER FROM PATHWAYS COORDINATOR CADY, DIALYSIS AT [facility], [facility], 1015AM; FIRST APPOINTMENT 12-19-19, 914. CM PROVIDED COPY TO PT AND SPOUSE IN ROOM. CM DISCUSSED HOME HEALTH, PT NOW STATES THAT HE IS STRONGER AND HAS NO NEED OF HOME HEALTH SERVICES. CM REVIEWED CHART, THERE ARE NO ORDERS FOR HOME HEALTH, MEDICAL EQUIPMENT OR OTHER SERVICES. PT DENIES FURTHER NEEDS, SPOUSE TO TRANSPORT HOME. SUPERVISOR LINE DEPARTMENT NURSE NOTIFIED. Kory Scott, CASE MANAGEMENT DCP- Discharge Planning Updated by [id number]: Kory Scott on 12/16/19 4:[address] Patient Name: SAMANTHA SLOAN Admission Status: ER Accout number: [id number] Admission Date: 12-06-2019 : 1945 Admission Diagnosis: Attending: AZALIA Current LOS: 10 Anticipated DC Date: 12-10-2019 Planned Disposition: Home with Home Health Primary Insurance: [employer] PPO MCR ADVANT PLANNED EXTERNAL PROVIDER: [facility] Discharge Planning Comments: CM RECEIVED ORDER FOR INPATIENT REHAB PRESCREENING. CM MET WITH PT AND SPOUSE IN ROOM TO DISCUSS DISCHARGE NEEDS AND PLANNING. SAMANTHA SLOAN provided verbal consent to discuss current and ongoing needs with/in the presence of: SPOUSE, KRISTINA. CM DISCUSSED AVAILABILITY OF HOME HEALTH, REHAB SERVICES AND MEDICAL EQUIPMENT. PT DENIES NEED FOR REHAB PLACEMENT. PT'S SPOUSE REPORTS ABILITY TO CARE FOR PT AT HOME AND WOULD LIKE HOME HEALTH FOR NURSING SHE "DOES EVERYTHING ELSE HERSELF." SPOUSE TO TRANSPORT HOME AT DISCHARGE. CHOICE FOR [facility] FROM [facility] SIGNED PT HAS USED THEM IN THE PAST. IMPORTANT MESSAGE FROM MEDICARE PROVIDED AND EXPLAINED. CM TO FOLLOW AND ASSIST NEEDED. PT NOR SPOUSE WANT REHAB PLACEMENT AND PLAN FOR PT TO GO HOME WITH ASSISTANCE OF SPOUSE WHO WILL TRANSPORT HOME AND TO DIALYSIS WHEN CLINIC IS ARRANGED. CM WAITING ON OUTPATIENT CLINIC ARRANGEMENT; CM TO ARRANGE HOME HEALTH OBSERVATION AND ASSESSMENT WITH PHYSICIAN AGREEMENT AND ORDER. Clutch Inspector: Kory Scott DCP- Discharge Planning Updated by [email or web address]: Nissa Dyer on 12/15/19 10:[address] CM sent message to Beth Tsang for outpatient dialysis placement. CM will continue to follow and assist as needed with discharge planning / needs. DCP- Discharge Planning Updated by [id number]: Nissa Dyer on 12/10/19 6:[address] Patient Name: SAMANTHA SLOAN Admission Status: ER Accout number: [id number] Admission Date: 12-06-2019 : 1945 Admission Diagnosis: Attending: AZALIA Current LOS: 4 Anticipated DC Date: Planned Disposition: Home Primary Insurance: [employer] CHOICE PPO [facility] Discharge Planning Comments: CM met with patient at bedside after explaining CM role and obtaining verbal consent. Patient lives at home with his where he is independent with his care and plans to return there upon discharge. Patient feels this would be a safe discharge. CM discussed availability / needs of home health and medical equipment. Patient denies any discharge needs at this time. Patient states he will have his family drive him home upon discharge. Uncertain of d/c needs may need walk test for home 02. Uncertain if he will need outpatient dialysis at this time. CM will continue to follow and assist as needed with discharge planning / needs. Clutch Inspector: Nissa Dyer DCPIA - Discharge Planning Initial Assessment Updated by [email or web address]: Nissa Dyer on 12/10/19 7:12 pm * Is the patient Alert and Oriented? Yes * How many steps to enter\\exit or inside your home? * PCP [facility] * [facility] * Preadmission Environment Home with Family * ADLs Independent * Other Equipment B/P MACHINE * List name and contact numbers for known caregivers / representatives who currently or will assist patient after discharge: KRISTINA FLETCHER - [facility]- [phone] * Verbal permission to speak to the caregivers and representatives has been obtained from the patient. Yes * Community resources currently utilized None * Additional services required to return to the preadmission environment? No * Can the patient safely return to the preadmission environment? Yes * Has this patient been hospitalized within the prior 30 days at any hospital? 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 Finisher Name: Delivery Method: HAND - Hand Delivered Cata Days: Prior Verbal Notification: Recipient Understood Notice: Yes Recipient Signature: Yes Med Rec Note Co-signed by Attending: Coverage Notice Comment: [facility] Reviewer: [email or web address] Scott Notice Issued Date-Time: 12/16/2019 13:55 Notice Type: IM Discharge Notice Notice Delivered To: Patient Relationship to Patient: Porcelain Finisher Name: Delivery Method: HAND - Hand Delivered Cata Days: Prior Verbal Notification: Recipient Understood Notice: Yes Recipient Signature: Yes Med Rec Note Co-signed by Attending: Coverage Notice Comment: Last DP export: 12/16/19 4:11 p Patient Name: SAMANTHA SLOAN Page [id number] at 1647 All edits/amendments must be made on the electronic document DICTATION DATE: 12/17/191646 COMPLAINT EVALUATION OFFICER: RY 12/17/191646 RPT#: [id number] DC DATE: STATUS: ADM IN [facility] [address] [place] [address] END OF REPORT
--- NOTE | 2019-12-17 18:06 | NUR ---
IV REMOVED WITH CATHETER INTACT. PATIENT HAS BEEN DISCHARGED. HE LEFT THE FLOOR BY WHEELCHAIR . DISCHARGE TEACHING DONE AND PAPERS SIGNED. TEACHING COMPLETE. ALL PATIENT BELONGINGS HAVE GONE HOME WITH THE PATIENT.
== END 2019-12-17 18:09 | disposition home or self-care (01) | DRG 193 ==
LOC: D.ER 15:56 → D.M2 16:40 → D.ICU 16:40 → D.M2 12-11 18:45
PROVIDERS: Family Medicine; Internal Medicine Nephrology; Internal Medicine Pulmonary Disease; ADMIT Family Medicine; ATTEND Family Medicine
PROC: 05HM33Z Insertion of Infusion Device into Right Internal Jugular Vein, Percutaneous Approach (ICD-10-PCS; principal; 2019-12-08)
PROC: 05HM33Z Insertion of Infusion Device into Right Internal Jugular Vein, Percutaneous Approach (ICD-10-PCS; 2019-12-14)
PROC: 0JH63XZ Insertion of Tunneled Vascular Access Device into Chest Subcutaneous Tissue and Fascia, Percutaneous Approach (ICD-10-PCS; 2019-12-16)
PROC: 05HM33Z Insertion of Infusion Device into Right Internal Jugular Vein, Percutaneous Approach (ICD-10-PCS; 2019-12-16)
DX: J18.9 Pneumonia, unspecified organism (principal); J96.21 Acute and chronic respiratory failure with hypoxia; I50.31 Acute diastolic (congestive) heart failure; N18.6 End stage renal disease; J44.1 Chronic obstructive pulmonary disease with (acute) exacerbation; N17.9 Acute kidney failure, unspecified; I48.20 Chronic atrial fibrillation, unspecified; I13.0 Hypertensive heart and chronic kidney disease with heart failure and stage 1 through stage 4 chronic kidney disease, or unspecified chronic kidney disease; J44.0 Chronic obstructive pulmonary disease with (acute) lower respiratory infection; Z99.81 Dependence on supplemental oxygen; D64.9 Anemia, unspecified; I73.9 Peripheral vascular disease, unspecified; Z89.612 Acquired absence of left leg above knee; M06.9 Rheumatoid arthritis, unspecified; G89.29 Other chronic pain; R60.9 Edema, unspecified; E78.5 Hyperlipidemia, unspecified; Z87.891 Personal history of nicotine dependence; I50.9 Heart failure, unspecified